=== PATIENT | male | born 1995 | race Caucasian/White ===

== ENCOUNTER 2021-11-20 19:18 | Emergency (ER) | payer OTHER, SELFPAY ==
[2021-11-20 19:49] VITALS: BP 110/52; PULSE 84; RESP 18; TEMP 36.7; O2SAT 100; BMI 18.6
== END 2021-11-20 20:55 | disposition left against medical advice (07) ==
PROVIDERS: Emergency Provider Emergency Medicine
DX: R50.9 Fever, unspecified (principal); G43.909 Migraine, unspecified, not intractable, without status migrainosus
CPT/HCPCS: 99281; 99282

== ENCOUNTER 2024-08-06 02:16 | Emergency (ER) | payer OTHER, SELFPAY ==
--- NOTE | ~2024-08-06 | XR_ITS ---
EXAMINATION: XR KNEE, LEFT CLINICAL INFORMATION: Pain. COMPARISON: None available. TECHNIQUE: 2 of the knee. FINDINGS: The bone mineralization is normal. The joint spaces are maintained. There is no fracture. There is no significant joint effusion. XR/XR knee LT 2V IMPRESSION: No significant abnormality seen. Electronically signed by: Caesar Conn MD 08/06/2024 05:48 AM EDT
[2024-08-06 02:18] VITALS: BP 137/84; PULSE 89; RESP 18; TEMP 36.9; O2SAT 98; BMI 19.9
[2024-08-06 04:15] VITALS: BP 147/65; PULSE 77; RESP 18; TEMP 36.8; O2SAT 98
--- NOTE | 2024-08-06 04:46 | ED.GENADULT ---
HPI - General Adult General Chief complaint: Extremity Problem Stated complaint: left knee/swollen/painful Time Seen by Provider: 08/06/24 04:45 History of Present Illness ED Provider: Odette HPI narrative: The patient is a 29-year-old male who developed pain in the region of his left kneecap today when he was playing on the ground on his knees with his daughter. He says that he has been on his knees for very long before he developed this very distinct and sharp pain which was associated with swelling of the skin overlying the kneecap. 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 No fever, sweats, chills. He has never had this problem before. Related Data Previous Rx's ?Medication ?Instructions ?Recorded ibuprofen 600 mg tablet 600 mg PO Q6H PRN pain #14 tabs 08/06/24 Allergies Allergy/AdvReac Type Severity Reaction Status Date / Time No Known Allergies Allergy Verified 08/06/24 02:20 Review of Systems Review of Systems: Yes all other systems are reviewed and are negative [facility] Past Medical History Medical History (Updated 08/06/24 @ 04:57 by Arslan Pino MD) Heart murmur Surgical History (Updated 11/20/21 @ 19:52 by Tameka El) No pertinent past surgical history Social History Social History Advance Directives: No Advance Directives Information Provided: No Physical Exam ED Vital Signs: Vital Signs - 24 hr 08/06/24 02:18 08/06/24 04:15 08/06/24 05:26 Temperature 98.4 F 98.2 F 97.9 F Pulse Rate 89 77 68 Respiratory Rate 18 18 16 Blood Pressure 137/84 147/65 H 128/66 Pulse Oximetry 98 98 98 Oxygen Delivery Method Room Air Room Air Room Air BMI result Body Mass Index 19.9 Const Other: The patient is a slim 29-year-old male who looks as if he is ordinarily healthy. HENMT Other: Head and face are unremarkable. Mucous membranes moist. Eyes General: appearance normal, both eyes and all related structures Resp Effort & Inspection: normal respiratory effort Skin Other: There is some mildly pale erythema and swelling to the skin over the left patella. The skin is intact. Neuro Other: The patient is awake and alert and appropriate. The left foot is neurovascularly intact. Extrem Other: The patient has swelling and tenderness to the skin overlying the left patella. He does not seem to have swelling to the joint itself. Medications Administered Discontinued Medications Generic Name Dose Route Start Last Admin Trade Name Genna PRN Reason Stop Dose Admin Acetaminophen 975 mg 08/06/24 04:55 08/06/24 05:20 Acetaminophen 325 Mg Tablet PO 08/06/24 04:56 975 mg ONCE ONE Administration Ketorolac Tromethamine 30 mg 08/06/24 04:55 08/06/24 05:23 Ketorolac Tromethamine 30 Mg/Ml Vial IM 08/06/24 04:56 30 mg ONCE ONE Administration Medical Decision Making Medical Decision Making MDM Narrative: The patient is a 29-year-old who presents with what seems to be prepatellar bursitis of the left knee. 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 His symptoms became apparent when he was on his knees at home tonight. The patient will be given a knee immobilizer. He should rest and take it easy and avoid any pressure on his knees for awhile. He should follow up with his PCP. He was given a work note. Discharge Plan Discharge Clinical Impression: Prepatellar bursitis of left knee Patient Disposition: Home, Self-Care Instructions: Knee Bursitis (ED) Additional Instructions: I believe that you have an inflammation of the bursa in front of your left kneecap that we called prepatellar bursitis. I suspect that this is the result of spending a lot of time on your knees. The treatment is primarily rest and staying off your knees. You have been given a knee immobilizer to help keep your knee still and keep the knee from bending. As much as you are able to you should rest for the next several days and keep the leg elevated. Apply ice packs to the knee cap area. Use ibuprofen and acetaminophen as needed for pain. Follow up next week with your regular doctor's office. Return to the emergency room if you are significantly worse, especially if you develop a fever or other signs of infection. Prescriptions: New ibuprofen 600 mg tablet 600 mg PO Q6H PRN (Reason: pain) Qty: 14 0RF Referrals: Mikayla Montano PA [Primary Care Provider] - (Left prepatellar bursitis) Stand Alone Forms: Work/School Release Interventions: ED Discharge Assessment Last Done: 08/06/24 05:26 Discharge Date/Time: 08/06/24 05:33 Print Language: Uzbek
[2024-08-06] MEDS: Acetaminophen 325 MG TABLET 975 MG PO (05:20)
[2024-08-06] MEDS: Ketorolac Tromethamine 30 MG/ML VIAL IM (05:23)
[2024-08-06 05:26] VITALS: BP 128/66; PULSE 68; RESP 16; TEMP 36.6; O2SAT 98
== END 2024-08-06 05:33 | disposition home or self-care (01) ==
PROVIDERS: Emergency Provider Emergency Medicine; PCP Physician Assistant
DX: M70.52 Other bursitis of knee, left knee (principal); Y93.9 Activity, unspecified; M25.562 Pain in left knee
CPT/HCPCS: 73560; 96372; 99283; 99284; J1885

== ENCOUNTER 2024-09-08 13:23 | Outpatient (AMB) | payer OTHER, SELFPAY ==
[2024-09-08 13:32] VITALS: BP 135/73; PULSE 100; O2SAT 98; BMI 19.9
--- NOTE | 2024-09-08 13:32 | MHC.OFFVIS ---
Vital Signs 09/08/24 13:32 Height 5 ft 9 in Weight 135 lb BMI 19.9 BP 135/73 Blood Pressure Location Rt brachial Position Sitting Pulse 100 Pulse Source Pulse Oximeter Pulse Oximetry (%) 98 Oxygen Delivery Method Room Air Intake Visit Reasons: Low back pain Allergies No Known Allergies Allergy (Verified 09/08/24 13:33) Medication List - Last Reconciled 09/08/24 by Mikayla Martinez bupropion HCl XL 300 mg PO QAM cetirizine (All Day Allergy (cetirizine)) 10 mg PO DAILY PRN escitalopram oxalate 20 mg PO DAILY famotidine 20 mg PO BID gabapentin 100 mg PO TID hydroxyzine HCl 25 mg PO BID PRN ibuprofen 600 mg PO Q6H PRN sildenafil 50 mg PO DAILY PRN tizanidine 2 mg PO Q8H PRN trazodone 50 mg PO BEDTIME PRN triamcinolone acetonide 0.1% 1 appl topical BID HPI Comments Details: John is a very pleasant 29-year-old male who presents to the office today for evaluation management of his chronic diffuse pain He complains of pain to his neck, back, arms, knees, feet. Pain most significant in the neck and he chose to focus on this area Patient reports he has been suffering with this pain for 2 years, denies inciting injury, fall, trauma. He is not sure what caused this pain to start. Endorses 7/10 pain to bilateral trapezius, worse with movement and tender to palpation. Denies midline cervical neck pain States he has an MRI was neck scheduled for September 21, this was ordered by his neurologist. Denies radiation of the pain from the neck down to the fingers on either side but does state that at times his hands feel numb and tingling. He is not able to state how often this happens or how long it lasts for nor is he able to detail that precedes the changes. He reports no improvement in his pain with Tylenol or nonsteroidal anti-inflammatory medications. Minimal improvement with gabapentin 300 mg p.o. 3 times daily Has been taking tizanidine 4 mg 3 times daily for several months without improvement before that he was on tizanidine 2 mg 3 times daily for over 1 year Denies any recent x-rays Completed physical therapy a couple months ago without improvement, he continues with home exercise program has instructed on discharge from physical therapy. In terms of muscle damage condition is described as pulling, throbbing, pounding, jumping, shooting, sharp, tingling, stinging, tiring, dull, sore, hurting, aching, heavy got tight, squeezing, spreading Pain is negatively impacting patient's enjoyment of life, general activity, sleep, mood, ability to perform activities of daily living Denies current use of anticoagulants Denies implantable devices, pacemaker defibrillator Denies current use of alcohol, nicotine or tobacco. Endorses daily marijuana use. [facility] Medical History (Updated 09/08/24 @ 16:11 by Chelsea Reeves, OPERATER, TELESALES REPRESENTATIVE) Heart murmur Surgical History (Updated 11/20/21 @ 19:52 by Tameka El) No pertinent past surgical history Review of Systems Const All systems reviewed & are unremarkable except as noted in HPI and below Physical Exam Vital Signs: Last Vital Signs Pulse 100 09/08/24 13:32 BP 135/73 09/08/24 13:32 Pulse Ox 98 09/08/24 13:32 Oxygen Delivery Method Room Air 09/08/24 13:32 BMI result Body Mass Index 19.9 General: awake, alert, oriented. Answers questions appropriately. Fully engaged in examination. Skin: warm, dry, intact HEENT: Normocephalic. Hearing intact. Cardiac: External chest normal in appearance. Respiratory: No cough, audible wheezing or stridor. Abdomen: without gross distension. MS: No obvious swelling or deformities. Full cervical range of motion. Tenderness to palpation over bilateral middle trapezius Spurling negative Neurological: Oriented to person, place, time and situation. Thought process intact. No gait abnormalities appreciated. Psychiatric: Appropriate mood and affect. Good judgment and insight. Assessment & Plan Assessment & Plan (1) Dorsalgia: Code(s): M54.9 - Dorsalgia, unspecified Category: Medical (2) Cervicalgia: Code(s): M54.2 - Cervicalgia Category: Medical (3) Paresthesia of both hands: Code(s): R20.2 - Paresthesia of skin Category: Medical (4) Chronic pain syndrome: Code(s): G89.4 - Chronic pain syndrome Category: Medical Plan John is a very pleasant 29-year-old male who presented to the office today for evaluation management of his chronic pain X-ray lumbar spine and cervical spine ordered for evaluation EMG ordered to evaluate for patient's reported paresthesia of his bilateral hands Referral placed for Rheumatology to evaluate given patient's reported polyarthralgia Discontinue tizanidine, new prescription for baclofen 5 mg p.o. 3 times daily as needed. Patient advised on cautions for use All questions and concerns were answered, patient agrees the plan. Follow up after MRI/EMG, sooner if needed Orders: Orders XR lumbar spine 4V min Today M54.9 - Dorsalgia, unspecified NE electromyogram (EMG) Today R20.2 - Paresthesia of skin XR cervical spine w flex/ext Today M54.2 - Cervicalgia Referrals Rheumatology Referral M25.50 - Pain in unspecified joint Medications: New baclofen Discontinue use of tizanidine. No driving while taking this medication, do not take with any other [employer]ING [employer] depressants. 5 mg PO TID 90 tabs 1RF Coding Level of Care Code New Pt Level 4 (44234) Complex EM visit Add On G2211 Diagnoses Dorsalgia M54.9 Cervicalgia M54.2 Paresthesia of both hands R20.2 Chronic pain syndrome G89.4
== END 2024-09-08 13:55 | disposition home or self-care (01) ==
LOC: HO.PMC 13:23
PROVIDERS: PCP Physician Assistant; Visit Provider Registered Nurse Emergency
DX: M54.9 Dorsalgia, unspecified (principal); M54.2 Cervicalgia; R20.2 Paresthesia of skin; G89.4 Chronic pain syndrome
CPT/HCPCS: 99204

== ENCOUNTER 2024-09-08 13:23 | Outpatient (REF) | payer OTHER, SELFPAY | END 2024-09-08 13:24 | disposition home or self-care (01) | LOC: HO.XRAY 13:23 | PROVIDERS: PCP Physician Assistant; Visit Provider Registered Nurse Emergency | DX: M54.2 Cervicalgia (principal); M54.9 Dorsalgia, unspecified | CPT/HCPCS: 72052; 72110 ==

== ENCOUNTER 2024-09-29 08:49 | Outpatient (REF) | payer OTHER, SELFPAY ==
--- NOTE | 2024-09-29 08:52 | EMG_ITS ---
Chief complaint: Hand numbness, right worse than left; neck pain Reason for referral: Evaluate for Carpal Tunnel Syndrome versus radiculopathy Referred by: Chelsea Reeves NP Procedure done: Bilateral upper extremities NCS/EMG Precautions and/or limitations: None The limb temperature was monitored continuously and remained between 32-36 degrees C during the performance of the NCS. Nerve Conduction Studies Anti Sensory Summary Table ?Stim Site NR Onset (ms) Norm Onset (ms) Peak (ms) Norm Peak (ms) O-P Amp (?V) Norm O-P Amp Site1 Site2 Delta-0 (ms) Dist (cm) Song (m/s) Norm Song (m/s) Left Median Anti Sensory (2nd Digit) Wrist ? 2.8 3.6 <3.6 30.0 >10 Wrist 2nd Digit 2.8 14.0 50 Right Median Anti Sensory (2nd Digit) Wrist ? 1.8 3.6 <3.6 9.1 >10 Wrist 2nd Digit 1.8 14.0 78 Right Radial Anti Sensory (Thumb) Forearm ? 1.7 2.4 <3.1 16.5 Forearm Thumb 1.7 0.0 Left Ulnar Anti Sensory (5th Digit) Wrist ? 2.7 3.5 <3.7 21.9 >15.0 Wrist 5th Digit 2.7 14.0 52 Right Ulnar Anti Sensory (5th Digit) Wrist ? 2.8 3.6 <3.7 26.1 >15.0 Wrist 5th Digit 2.8 14.0 50 Motor Summary Table ?Stim Site NR Onset (ms) Norm Onset (ms) O-P Amp (mV) Norm O-P Amp iAmp (mV) Amp (1st) (%) Site1 Site2 Delta-0 (ms) Dist (cm) Song (m/s) Norm Song (m/s) Left Median Motor (Abd Poll Brev) Wrist ? 3.8 <3.9 13.6 >4.5 16.9 100.0 Elbow Wrist 4.2 23.5 56 >45 Elbow ? 8.0 12.4 15.6 91.2 Right Median Motor (Abd Poll Brev) Wrist ? 3.7 <3.9 10.4 >4.5 12.4 100.0 Elbow Wrist 4.3 22.5 52 >45 Elbow ? 8.0 9.3 11.0 89.4 Left Ulnar Motor (Abd Dig Minimi) Wrist ? 3.0 <3.0 10.4 >5 12.5 100.0 B Elbow Wrist 3.7 20.5 55 >45 B Elbow ? 6.7 10.4 12.6 100.0 A Elbow B Elbow 1.7 10.0 59 >45 A Elbow ? 8.4 10.6 13.0 101.9 Right Ulnar Motor (Abd Dig Minimi) Wrist ? 3.0 <3.0 12.5 >5 14.2 100.0 B Elbow Wrist 4.2 21.5 51 >45 B Elbow ? 7.2 11.8 13.4 94.4 A Elbow B Elbow 1.6 10.0 62 >45 A Elbow ? 8.8 11.9 13.5 95.2 EMG ?Side Muscle Nerve Root Ins Act Fibs Psw Amp Dur Poly Recrt Int Pat Comment Right 1stDorInt Ulnar C8-T1 Nml Nml Nml Nml Nml 0 Nml Complete Right FlexCarRad Median C6-7 Nml Nml Nml Nml Nml 0 Nml Complete Right Biceps Musculocut C5-6 Nml Nml Nml Nml Nml 0 Nml Complete Right Triceps Radial C6-7-8 Nml Nml Nml Nml Nml 0 Nml Complete Right Deltoid Axillary C5-6 Nml Nml Nml Nml Nml 0 Nml Complete Left 1stDorInt Ulnar C8-T1 Nml Nml Nml Nml Nml 0 Nml Complete Left FlexCarRad Median C6-7 Nml Nml Nml Nml Nml 0 Nml Complete Left Biceps Musculocut C5-6 Nml Nml Nml Nml Nml 0 Nml Complete Left Triceps Radial C6-7-8 Nml Nml Nml Nml Nml 0 Nml Complete Left Deltoid Axillary C5-6 Nml Nml Nml Nml Nml 0 Nml Complete FINDINGS: Right median motor nerve showed borderline peak latency and small amplitude. All other nerves tested were within normal. Concentric needle EMG was performed in selected muscles of the bilateral upper extremities. Study did not reveal signs of electric abnormalities as shown in the table above. IMPRESSION: 1. This is an abnormal study. 2. There is electrodiagnostic evidence for right mild median neuropathy at the wrist, consistent with carpal tunnel syndrome. 3. There is no electrodiagnostic evidence for ulnar neuropathy, brachial plexopathy, or cervical radiculopathy. 4. There is no electrodiagnostic evidence for median neuropathy on the left. Thank you for your kind referral. Mandy Orourke MD, MEETA Board Certified, [place] Board [employer] and Rehabilitation (ABPMR) Board Certified, [place] Board of Electrodiagnostic Medicine (ABEM) CODIN [phone] MTDD
== END 2024-09-29 08:50 | disposition home or self-care (01) ==
LOC: HO.NEURO 08:49
PROVIDERS: PCP Physician Assistant; Visit Provider Registered Nurse Emergency
DX: R20.2 Paresthesia of skin (principal)
CPT/HCPCS: 95886; 95911

== ENCOUNTER → 2024-09-29 08:52 | Outpatient (BNV) | payer OTHER, SELFPAY | PROVIDERS: PCP Physician Assistant; Visit Provider Physical Medicine & Rehabilitation | DX: G56.01 Carpal tunnel syndrome, right upper limb (principal); R20.0 Anesthesia of skin; R20.2 Paresthesia of skin | CPT/HCPCS: 95886; 95911 ==

== ENCOUNTER 2024-09-30 10:25 | Outpatient (AMB) | payer OTHER, SELFPAY ==
[2024-09-30 10:30] VITALS: BP 126/66; PULSE 75; O2SAT 99; BMI 19.9
--- NOTE | 2024-09-30 10:30 | A.OFFVIS_ITS ---
Vital Signs 09/30/24 10:30 Height 5 ft 9 in Weight 135 lb BMI 19.9 BP 126/66 Blood Pressure Location Rt brachial Position Sitting Pulse 75 Pulse Source Pulse Oximeter Pulse Oximetry (%) 99 Oxygen Delivery Method Room Air Intake Visit Reasons: MRI FU Pt has the report/EMG results Allergies No Known Allergies Allergy (Verified 09/30/24 10:30) Medication List - Last Reconciled 09/30/24 by Mikayla Martinez baclofen 5 mg PO TID bupropion HCl XL 300 mg PO QAM cetirizine (All Day Allergy (cetirizine)) 10 mg PO DAILY PRN escitalopram oxalate 20 mg PO DAILY famotidine 20 mg PO BID gabapentin 100 mg PO TID hydroxyzine HCl 25 mg PO BID PRN ibuprofen 600 mg PO Q6H PRN sildenafil 50 mg PO DAILY PRN trazodone 50 mg PO BEDTIME PRN triamcinolone acetonide 0.1% 1 appl topical BID HPI Comments Details: Patient presents back to the office today for follow-up, readily recent EMG. EMG reviewed, results as per below. Recent MRI reviewed on patient portal via his cell phone. Results as per below Patient states he notices some improvement with baclofen. He would like to continue taking this medication. Since last visit his gabapentin was increased from 300 t.i.d. to 400 t.i.d.. He has not noticed any improvement in his symptoms since this change. Pending rheumatology appointment 12/30/2024. Patient reports he has a thoracic spine MRI pending per Neurology. He denies any recent attempts at physical therapy but he would be willing to try. Intake note: John is a very pleasant 29-year-old male who presents to the office today for evaluation management of his chronic diffuse pain He complains of pain to his neck, back, arms, knees, feet. Pain most significant in the neck and he chose to focus on this area Patient reports he has been suffering with this pain for 2 years, denies inciting injury, fall, trauma. He is not sure what caused this pain to start. Endorses 7/10 pain to bilateral trapezius, worse with movement and tender to palpation. Denies midline cervical neck pain States he has an MRI was neck scheduled for September 21, this was ordered by his neurologist. Denies radiation of the pain from the neck down to the fingers on either side but does state that at times his hands feel numb and tingling. He is not able to state how often this happens or how long it lasts for nor is he able to detail that precedes the changes. He reports no improvement in his pain with Tylenol or nonsteroidal anti- inflammatory medications. Minimal improvement with gabapentin 300 mg p.o. 3 times daily Has been taking tizanidine 4 mg 3 times daily for several months without improvement before that he was on tizanidine 2 mg 3 times daily for over 1 year Denies any recent x-rays Completed physical therapy a couple months ago without improvement, he continues with home exercise program has instructed on discharge from physical therapy. In terms of muscle damage condition is described as pulling, throbbing, pounding, jumping, shooting, sharp, tingling, stinging, tiring, dull, sore, hurting, aching, heavy got tight, squeezing, spreading Pain is negatively impacting patient's enjoyment of life, general activity, sleep, mood, ability to perform activities of daily living Denies current use of anticoagulants Denies implantable devices, pacemaker defibrillator Denies current use of alcohol, nicotine or tobacco. Endorses daily marijuana use. [facility] Medical History (Updated 09/30/24 @ 12:49 by Chelsea Reeves, ALISON, OUTSIDE PLANT CABLE ENGINEER) Heart murmur Surgical History (Updated 11/20/21 @ 19:52 by Tameka El) No pertinent past surgical history Review of Systems Const All systems reviewed & are unremarkable except as noted in HPI and below Physical Exam General: awake, alert, oriented. Answers questions appropriately. Fully engaged in examination. Skin: warm, dry, intact HEENT: Normocephalic. Hearing intact. Cardiac: External chest normal in appearance. Respiratory: No cough, audible wheezing or stridor. Abdomen: without gross distension. MS: No obvious swelling or deformities. Neurological: Oriented to person, place, time and situation. Thought process intact. No gait abnormalities appreciated. Psychiatric: Appropriate mood and affect. Good judgment and insight. Results Reviewed Results Reviewed: 09/2024 EMG IMPRESSION: 1. This is an abnormal study. 2. There is electrodiagnostic evidence for right mild median neuropathy at the wrist, consistent with carpal tunnel syndrome. 3. There is no electrodiagnostic evidence for ulnar neuropathy, brachial plexopathy, or cervical radiculopathy. 4. There is no electrodiagnostic evidence for median neuropathy on the left. 09/2024 MRI C/S. Writing visualized on patient portal via his cell phone during visit. C3-4 no significant stenosis. Mild left facet joint spurring and uncovertebral spurring resulting in mild left foraminal stenosis C6-7 mild disc bulge superimposed central and right paracentral disc extrusion. Minimal canal stenosis. [id number] bilateral foraminal stenosis. Assessment & Plan Assessment & Plan (1) Carpal tunnel syndrome: Code(s): G56.00 - Carpal tunnel syndrome, unspecified upper limb Category: Medical (2) Cervicalgia: Code(s): M54.2 - Cervicalgia Category: Medical Plan Patient presented back to the office today for follow-up, over recent MRI/EMG. Referral to hand surgery for carpal tunnel syndrome per EMG. Order placed for PT eval and treat Prescription for Celebrex 50 mg p.o. twice daily. Patient advised on cautions for use. Continue with baclofen and gabapentin as prescribed All questions and concerns were answered, patient agrees to the plan. Follow up after PT, sooner if needed Orders: Orders PT Evaluation and Treatment Today M54.2 - Cervicalgia Referrals Hand Surgery Referral G56.00 - Carpal tunnel syndrome, unspecified upper limb Medications: New celecoxib Do not take with any other nonsteroidal anti-inflammatory medications. Take with food. 50 mg PO BID 60 caps 3RF Discontinued ibuprofen Discontinued Reason: Duplicate 600 mg PO Q6H PRN 14 tabs 0RF pain Coding Level of Care Code Est Pt Level 3 (89961) Complex EM visit Add On G2211 Diagnoses Carpal tunnel syndrome G56.00 Cervicalgia M54.2
== END 2024-09-30 10:45 | disposition home or self-care (01) ==
PROVIDERS: PCP Physician Assistant; Visit Provider Registered Nurse Emergency
DX: G56.00 Carpal tunnel syndrome, unspecified upper limb (principal); M54.2 Cervicalgia
CPT/HCPCS: 99213

== ENCOUNTER 2024-10-21 15:03 | Outpatient (AMB) | payer OTHER, SELFPAY ==
--- NOTE | 2024-10-21 15:11 | MHC.OFFVIS ---
Vital Signs 10/21/24 15:15 Height 5 ft 9 in Weight 143 lb 2 oz BMI 21.1 BP 136/82 Blood Pressure Location Rt brachial Position Sitting Pulse 93 Pulse Source Pulse Oximeter Pulse Oximetry (%) 98 Oxygen Delivery Method Room Air Intake Visit Reasons: Discuss MRI Resuts Intake Note: Pain today 05/19 Director Physical Therapy Required: No Accompanied by: Self / Same As Patient Allergies No Known Allergies Allergy (Verified 09/30/24 10:30) HPI Comments Details: Patient presents back to the office today for follow-up, review of recent MRI Patient had recent thoracic spine MRI ordered by Neurology. He is here to review results which are available on his cell phone. Continues with neck pain. Taking baclofen with minimal improvement continues with Celebrex with minimal improvement. Is prescribed gabapentin 400 mg 3 times daily by his neurologist. He would like us to take over prescribing this consider dose increase. He has not been call to schedule physical therapy at Prior: Patient presents back to the office today for follow-up, readily recent EMG. EMG reviewed, results as per below. Recent MRI reviewed on patient portal via his cell phone. Results as per below Patient states he notices some improvement with baclofen. He would like to continue taking this medication. Since last visit his gabapentin was increased from 300 t.i.d. to 400 t.i.d.. He has not noticed any improvement in his symptoms since this change. Pending rheumatology appointment 12/30/2024. Patient reports he has a thoracic spine MRI pending per Neurology. He denies any recent attempts at physical therapy but he would be willing to try. Intake note: John is a very pleasant 29-year-old male who presents to the office today for evaluation management of his chronic diffuse pain He complains of pain to his neck, back, arms, knees, feet. Pain most significant in the neck and he chose to focus on this area Patient reports he has been suffering with this pain for 2 years, denies inciting injury, fall, trauma. He is not sure what caused this pain to start. Endorses 7/10 pain to bilateral trapezius, worse with movement and tender to palpation. Denies midline cervical neck pain States he has an MRI was neck scheduled for September 21, this was ordered by his neurologist. Denies radiation of the pain from the neck down to the fingers on either side but does state that at times his hands feel numb and tingling. He is not able to state how often this happens or how long it lasts for nor is he able to detail that precedes the changes. He reports no improvement in his pain with Tylenol or nonsteroidal anti-inflammatory medications. Minimal improvement with gabapentin 300 mg p.o. 3 times daily Has been taking tizanidine 4 mg 3 times daily for several months without improvement before that he was on tizanidine 2 mg 3 times daily for over 1 year Denies any recent x-rays Completed physical therapy a couple months ago without improvement, he continues with home exercise program has instructed on discharge from physical therapy. In terms of muscle damage condition is described as pulling, throbbing, pounding, jumping, shooting, sharp, tingling, stinging, tiring, dull, sore, hurting, aching, heavy got tight, squeezing, spreading Pain is negatively impacting patient's enjoyment of life, general activity, sleep, mood, ability to perform activities of daily living Denies current use of anticoagulants Denies implantable devices, pacemaker defibrillator Denies current use of alcohol, nicotine or tobacco. Endorses daily marijuana use. [facility] Medical History (Updated 09/30/24 @ 12:49 by Chelsea Reeves, CREMATORY ATTENDANT, WELCOME WAGON HOST/HOSTESS) Heart murmur Surgical History (Updated 11/20/21 @ 19:52 by Tameka El) No pertinent past surgical history Review of Systems Const All systems reviewed & are unremarkable except as noted in HPI and below Physical Exam Vital Signs: Last Vital Signs Pulse 93 10/21/24 15:15 BP 136/82 10/21/24 15:15 Pulse Ox 98 10/21/24 15:15 Oxygen Delivery Method Room Air 10/21/24 15:15 BMI result Body Mass Index 21.1 General: awake, alert, oriented. Answers questions appropriately. Fully engaged in examination. Skin: warm, dry, intact HEENT: Normocephalic. Hearing intact. Cardiac: External chest normal in appearance. Respiratory: No cough, audible wheezing or stridor. Abdomen: without gross distension. MS: No obvious swelling or deformities. Neurological: Oriented to person, place, time and situation. Thought process intact. No gait abnormalities appreciated. Psychiatric: Appropriate mood and affect. Good judgment and insight. Results Reviewed Results Reviewed: 10/18/24 MRI thoracic spine Impression: Small disc herniations at several levels, this is of doubtful clinical significance. No high-grade canal stenosis or neural foraminal narrowing. 09/2024 EMG IMPRESSION: 1. This is an abnormal study. 2. There is electrodiagnostic evidence for right mild median neuropathy at the wrist, consistent with carpal tunnel syndrome. 3. There is no electrodiagnostic evidence for ulnar neuropathy, brachial plexopathy, or cervical radiculopathy. 4. There is no electrodiagnostic evidence for median neuropathy on the left. 09/2024 MRI C/S. Writing visualized on patient portal via his cell phone during visit. C3-4 no significant stenosis. Mild left facet joint spurring and uncovertebral spurring resulting in mild left foraminal stenosis C6-7 mild disc bulge superimposed central and right paracentral disc extrusion. Minimal canal stenosis. [id number] bilateral foraminal stenosis. Assessment & Plan Assessment & Plan (1) Carpal tunnel syndrome: Code(s): G56.00 - Carpal tunnel syndrome, unspecified upper limb Category: Medical (2) Cervicalgia: Code(s): M54.2 - Cervicalgia Category: Medical Plan Patient presented back to the office today for follow-up, over recent MRI MRI reviewed, results as per above Continue with plan for PT eval and treat. Patient was given contact information for core PT and advised to call them if he does not hear within the next week. Prescription for Celebrex 50 mg p.o. twice daily. Continue with baclofen as prescribed Will increase gabapentin to 600 mg 3 times daily. All questions and concerns were answered, patient agrees to the plan. Follow up after PT, sooner if needed Medications: New gabapentin 600 mg PO TID 90 tabs 2RF Coding Level of Care Code Est Pt Level 3 (41034) Complex EM visit Add On G2211 Diagnoses Carpal tunnel syndrome G56.00 Cervicalgia M54.2
[2024-10-21 15:15] VITALS: BP 136/82; PULSE 93; O2SAT 98; BMI 21.1
== END 2024-10-21 15:31 | disposition home or self-care (01) ==
PROVIDERS: PCP Physician Assistant; Visit Provider Registered Nurse Emergency
DX: G56.00 Carpal tunnel syndrome, unspecified upper limb (principal); M54.2 Cervicalgia
CPT/HCPCS: 99213

== ENCOUNTER → 2024-10-21 15:03 | Outpatient (BNVA) | payer OTHER, SELFPAY | PROVIDERS: PCP Physician Assistant; Visit Provider Registered Nurse Emergency ==

== ENCOUNTER 2024-11-26 14:16 | Outpatient (AMB) | payer OTHER, SELFPAY ==
--- NOTE | 2024-11-26 14:30 | A.OFFVIS_ITS ---
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 Patient reports numbness and tingling that occurs daily but expresses it is only if he is holding objects in his hand too long. Reports occasional pain. He has difficulty gripping, grasping, squeezing and lifting. Denies finger locking. Has tried braces but offer no relief. Denies any prior injuries or surgeries. He is open to discussing surgical treatment if needed. Hx of EMG done on 09/29/24. IMPRESSION: 1. This is an abnormal study. 2. There is electrodiagnostic evidence for right mild median neuropathy at the wrist, consistent with carpal tunnel syndrome. 3. There is no electrodiagnostic evidence for ulnar neuropathy, brachial plexopathy, or cervical radiculopathy. 4. There is no electrodiagnostic evidence for median neuropathy on the left. 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 Patient reports numbness and tingling that occurs daily but expresses it is only if he is holding objects in his hand too long. Reports occasional pain. He has difficulty gripping, grasping, squeezing and lifting. Denies finger locking. Has tried braces but offer no relief. Denies any prior injuries or surgeries. He is open to discussing surgical treatment if needed. Hx of EMG done on 09/29/24. IMPRESSION: 1. This is an abnormal study. 2. There is electrodiagnostic evidence for right mild median neuropathy at the wrist, consistent with carpal tunnel syndrome. 3. There is no electrodiagnostic evidence for ulnar neuropathy, brachial plexopathy, or cervical radiculopathy. 4. There is no electrodiagnostic evidence for median neuropathy on the left. [facility] Medical History (Updated 09/30/24 @ 12:49 by Chelsea Reeves, SENIOR MOBILE APPLICATION DEVELOPER, SUPERVISOR BRAIDING) Heart murmur Surgical History (Updated 11/20/21 @ 19:52 by Tameka El) No pertinent past surgical history Social History (Updated 11/26/24 @ 14:35 by SILVIA Choudhury) Alcohol intake: former Substance Use Type: Marijuana Current occupational status: employed Review of Systems Const All systems reviewed & are unremarkable except as noted in HPI and below Physical Exam Vital Signs: BMI result Body Mass Index 19.9 Extrem Other: Neuro: Normal sensation of the tips of all digits of both hands in the office today No thenar or intrinsic wasting. Good APB muscle firing and good finger cross. Vascular: Capillary refill brisk. ROM: Patient can make a fist and extend all their digits. Skin: No lacerations or abrasions noted. General: No ecchymosis. No erythema or evidence of infection. Assessment & Plan Assessment & Plan (1) Carpal tunnel syndrome: Code(s): G56.00 - Carpal tunnel syndrome, unspecified upper limb Category: Medical Plan 1. Carpal tunnel syndrome, right Intermittent, daily, worse at night I educated the patient about the condition. I discussed both operative and nonoperative treatment options. The patient would like to proceed with surgery. The risks and benefits of operative treatment were discussed with the patient and the patient wishes to proceed with surgery. These risks include, but are not limited to, risk of damage to blood vessels, nerves, tendons, infection, recurrence, incomplete relief of preoperative symptoms, persistent pain, possible need for further surgery, and the risks associated with regional blocks and/or anesthesia. Plan is to take the patient to the operating room at some point in the next few weeks for the following procedures: 1. Right carpal tunnel release under local All of the preoperative paperwork including the consent was discussed today. All of the patient's questions were answered in the clinic today. The patient understands that they will be in contact with our surgical territory manager to discuss scheduling their procedure. Patient denies diabetes, blood thinners, asthma, heart issues, lung issues, kidney issues, or current smoking. 2. Carpal tunnel syndrome left Intermittent, daily, worse at night Patient would like to proceed with operative intervention on the right 1st Patient was educated that if he is recovering well we can get him signed up for left-sided surgery at his postop Patient was amenable to this plan Coding Level of Care Code New Pt Level 4 (95309) Diagnoses Carpal tunnel syndrome G56.00
[2024-11-26 14:34] VITALS: BMI 19.9
== END 2024-11-26 14:48 | disposition home or self-care (01) ==
PROVIDERS: PCP Physician Assistant
DX: G56.03 Carpal tunnel syndrome, bilateral upper limbs (principal)
CPT/HCPCS: 99204

== ENCOUNTER → 2024-11-26 14:16 | Outpatient (BNVA) | payer OTHER, SELFPAY | PROVIDERS: PCP Physician Assistant ==

== ENCOUNTER 2024-12-15 09:47 | Outpatient (REF) | payer OTHER, SELFPAY ==
--- NOTE | ~2024-12-15 | XR_ITS ---
CLINICAL HISTORY: M45.9 - Ankylosing spondylitis of unspecified sites in spine 4 view right hand Comparison: None Findings: Bones intact. No dislocations. No significant loss of joint space or osteophytes. No erosions. No radiopaque foreign body. IMPRESSION: 1. No acute findings This document has been electronically signed by: Yudy Jones MD on 12/16/2024 06:31:24
--- NOTE | ~2024-12-15 | XR_ITS ---
CLINICAL HISTORY: M45.9 - Ankylosing spondylitis of unspecified sites in spine 4 view right shoulder Comparison: None Findings: Bones intact. No dislocations. No significant arthritic change. No erosions. No radiopaque foreign body. IMPRESSION: 1. No acute findings This document has been electronically signed by: Yudy Jones MD on 12/16/2024 06:30:41
--- NOTE | ~2024-12-15 | XR_ITS ---
CLINICAL HISTORY: M45.9 - Ankylosing spondylitis of unspecified sites in spine 3 view right knee Comparison: None Findings: No fractures or dislocations. No significant loss of joint space, osteophytes, or erosions. No joint effusion. No radiopaque foreign body. IMPRESSION: 1. No acute findings. This document has been electronically signed by: Yudy Jones MD on 12/16/2024 06:29:01
--- NOTE | ~2024-12-15 | XR_ITS ---
CLINICAL HISTORY: M45.9 - Ankylosing spondylitis of unspecified sites in spine 4 view left shoulder Comparison: None Findings: Bones intact. No dislocations. No significant loss of joint space or osteophytes. No erosions. No radiopaque foreign body. IMPRESSION: 1. No acute findings. No significant degenerative change. This document has been electronically signed by: Yudy Jones MD on 12/16/2024 06:03:01
--- NOTE | ~2024-12-15 | XR_ITS ---
CLINICAL HISTORY: M45.9 - Ankylosing spondylitis of unspecified sites in spine 3 view left knee Comparison: None Findings: No fractures or dislocations. No significant loss of joint space, osteophytes, or erosions. No joint effusion. No radiopaque foreign body. IMPRESSION: 1. No acute findings. No significant degenerative change. This document has been electronically signed by: Yudy Jones MD on 12/16/2024 06:04:03
--- NOTE | ~2024-12-15 | XR_ITS ---
CLINICAL HISTORY: M45.9 - Ankylosing spondylitis of unspecified sites in spine 4 views sacroiliac joints Comparison: None Findings No acute fractures. No evidence of ankylosis. No significant degenerative change. No erosions. IMPRESSION: No acute findings. No evidence of ankylosis. This document has been electronically signed by: Yudy Jones MD on 12/16/2024 06:04:52
--- NOTE | ~2024-12-15 | XR_ITS ---
CLINICAL HISTORY: M45.9 - Ankylosing spondylitis of unspecified sites in spine 3 view left hand 4 view left wrist Comparison: None Findings: Bones intact. No dislocations. No significant loss of joint space or osteophytes. No erosions. No radiopaque foreign body. IMPRESSION: 1. No acute findings This document has been electronically signed by: Yudy Jones MD on 12/16/2024 06:34:50
[2024-12-15 11:22] LABS: MANUAL DIFF FLAG NO
[2024-12-15 11:51] LABS: Basophils Absolute Auto 0.1 X10*3/uL (0.0-0.2); Basophils Percent Auto 1.1 % (0-2); Eosinophils Absolute Auto 0.1 X10*3/uL (0.0-0.4); Eosinophils Percent Auto 1.5 % (0-4); Hematocrit 43.9 % (42.0-52.0); Imm Gran Abs Auto 0.02 X10*3/uL (0.00-0.03); Imm Gran Pct Auto 0.3 % (0.0-0.4); Lymphocytes Absolute Auto 2.8 X10*3/uL (1.2-4.9); Lymphocytes Percent Auto 39.4 % (20-40); Mean Corpuscular HGB Conc 34.2 g/dl (31.0-36.0); Mean Corpuscular Volume 87.8 fL (80.0-98.0); Mean Platelet Volume 10.7 fL (9.4-12.4); Monocytes Absolute Auto 0.6 X10*3/uL (0.1-1.2); Monocytes Percent Auto 7.9 % (2-11); Neutrophils Absolute Auto 3.5 x10*3/uL (2.0-8.3); Neutrophils Percent Auto 49.8 % (45-73); Platelet Count 318 X10*3/uL (160-400); Red Cell Distribution Width 12.6 % (11.0-16.0); White Blood Count 7.1 X10*3/uL (4.8-10.8)
[2024-12-15 12:29] LABS: Alanine Aminotransferase 70 U/L (0-40); Albumin Level 4.6 g/dL (3.5-5.0); Alkaline Phosphatase 85 U/L (39-117); Anion Gap 10 (12-20); Aspartate Amino Transferase 46 U/L (5-37); Bilirubin Total 0.5 mg/dL (0.0-1.0); Blood Urea Nitrogen 8 mg/dL (9-16); C Reactive Protein < 0.10 mg/dL (< or = 0.50); Calcium 8.7 mg/dL (8.4-10.2); Carbon Dioxide 28 mmol/L (22-29); Chloride 106 mmol/L (96-108); Estimated Glomerular Filt Rate > 60; Glucose Random 98 mg/dL (60-115); Potassium 4.1 mmol/L (3.3-5.1); Sodium 140 mmol/L (135-145); Total Protein 7.3 g/dL (6.5-8.0)
[2024-12-15 12:30] LABS: Erythrocyte Sedimentation Rate 1 MM/HR (0-15)
[2024-12-15 12:38] LABS: Thyroid Stimulating Hormone 0.91 uIU/mL (0.32-4.0)
[2024-12-15 12:43] LABS: HBsAGNum1 0.37 S/CO (0.00-0.99); Hepatitis A Antibody IgM 0.14 Index (0-0.79); Hepatitis B Core Antibody Nonreactive (Nonreactive); Hepatitis B Surface Antigen Negative (Negative); ~HepC Num1 0.07 S/CO (0.00-0.79); ~Hepatitis A Antibody IgM Nonreactive (Nonreactive); ~Hepatitis B Surface Antibody NONREACTIVE (Nonreactive); ~Hepatitis C Antibody Nonreactive (Nonreactive)
[2024-12-15 13:26] LABS: Rheumatoid Factor < 13.0 IU/mL (<15.0)
[2024-12-16 14:54] LABS: Complement C3 117 mg/dL (82-185)
[2024-12-17 07:44] LABS: Lyme Abs Screen <0.90 index
[2024-12-17 16:18] LABS: Anti DNA DS Antibody <1 IU/mL; Antibody to SS-A Antigen <1.0 NEG AI (<1.0 NEG); Antibody to SS-B Antigen <1.0 NEG AI (<1.0 NEG)
[2024-12-17 17:28] LABS: Cyclic Citrullinated Peptide 17 UNITS
[2024-12-17 17:58] LABS: IgA 199 mg/dL (47-310); IgG 922 mg/dL (600-1640); IgM 36 mg/dL (50-300)
[2024-12-21 13:38] LABS: Anti Nuclear Antibody Screen NEGATIVE (NEGATIVE)
[2024-12-21 22:24] LABS: Centromere Protein A Ab <11 SI (<11); Centromere Protein B Ab <11 SI (<11); Fibrillarin Ab <11 SI (<11); PM SCL 100 Ab <11 SI (<11); PM SCL 75 Ab <11 SI (<11); RNA Polymerase III RP11 Ab <11 SI (<11); RNA Polymerase III RP155 Ab <11 SI (<11); SCL-70 Extractable Nuclear Ab <11 SI (<11); Th-To Ab <11 SI (<11); U1 SNRNP RNP 70KD <11 SI (<11); U1 SNRNP RNP A <11 SI (<11); U1 SNRNP RNP C <11 SI (<11)
== END 2024-12-15 09:48 | disposition home or self-care (01) ==
LOC: HO.XRAY 09:47
PROVIDERS: PCP Physician Assistant; Visit Provider Student in an Organized Health Care Education/Training Program
DX: M25.50 Pain in unspecified joint (principal); M45.9 Ankylosing spondylitis of unspecified sites in spine
CPT/HCPCS: 36415; 72202; 73030; 73110; 73130; 73562; 80053; 82550; 82784; 83516; 83520; 84182; 84443; 85025; 85652; 86038; 86140; 86160; 86200; 86225; 86235; 86431; 86617; 86618; 86704; 86706; 86709; 86803; 87340

== ENCOUNTER 2024-12-15 09:47 | Outpatient (AMB) | payer OTHER, SELFPAY ==
[2024-12-15 09:48] VITALS: BP 148/79; PULSE 87; BMI 20.8
--- NOTE | 2024-12-15 09:48 | A.OFFVIS_ITS ---
Vital Signs 12/15/24 09:48 Height 5 ft 9 in Weight 141 lb 1.533 oz BMI 20.8 BP 148/79 H Blood Pressure Location Rt brachial Position Sitting Pulse 87 Pulse Source Pulse Oximeter Intake Visit Reasons: Joint Pain Intake Note: NEW Patient present here today to establish treatment for Joint Pain: Pain scale 1-10_6 Hand Coper Required: No Accompanied by: Self / Same As Patient Allergies No Known Allergies Allergy (Verified 12/15/24 09:50) Medication List - Last Reconciled 12/15/24 by Hallie Cerrato MD baclofen 5 mg PO TID bupropion HCl XL 300 mg PO QAM celecoxib 50 mg PO BID cetirizine (All Day Allergy (cetirizine)) 10 mg PO DAILY PRN escitalopram oxalate 20 mg PO DAILY famotidine 20 mg PO BID gabapentin 600 mg PO TID hydroxyzine HCl 25 mg PO BID PRN ibuprofen mg PO 3XD sildenafil 50 mg PO DAILY PRN trazodone 50 mg PO BEDTIME PRN triamcinolone acetonide 0.1% 1 appl topical BID HPI Comments Details: Patient is a 29 year old male here today for evaluation of polyarthralgias Has been experiencing alot of pain over the past 2.5 years Joint pain - neck - shoulder - left muscle pain with spasms Currently undergoing evaluation with neuro - Knees Associated with recurrent pes anserine bursitis - Feet When he wakes up in the morning it is associated with stiffness that lasts 45mins - 1 hour. 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 No diarrhea or blood in the stool [facility] Medical History Carpal tunnel syndrome on right Heart murmur Surgical History No pertinent past surgical history Family History (Updated 12/15/24 @ 09:59 by TAMMY Sanchez) Father No problems noted. Mother No problems noted. Social History Alcohol intake: former Substance Use Type: Marijuana Current occupational status: employed Review of Systems Const Details: Review of Systems Constitutional: Denies fever, chills, weight loss ENT: Denies vision changes, eye pain or eye redness, dental caries, dry mouth GI: Denies nausea, vomiting, diarrhea, abdominal pain, change in BM Pulm: Denies SOB, KELLY, hemoptysis, wheezing Cards: Denies chest pain, palpitations Skin: Denies Raynaud's, rash, nail changes, photosensitivity, ASSISTANT MAINTENANCE MANAGER: Denies headaches, weakness, paresthesias, recurrent falls MSK: as per HPI All other systems reviewed and are unremarkable except noted above Physical Exam Vital Signs: Last Vital Signs Pulse 87 12/15/24 09:48 BP 148/79 H 12/15/24 09:48 BMI result Body Mass Index 20.8 Vital signs reviewed Physical Examination CONSTITUITIONAL Patient alert and cooperative. Well appearing and in no apparent painful distress HEENT Conjunctiva and sclera clear. Pupils equal round and reactive to light. No lymphadenopathy. CHEST/RESPIRATORY SYSTEM Normal respiratory effort and able to speak in complete sentences. Clear to auscultation bilaterally. No crackles, rales, rhonchi, wheezes heard. CARDIAC SYSTEM Regular rate and rhythm. S1 and S2 heard no murmurs. Radial pulses intact bilaterally MSK Hands: Good cluster bore operator strength bilaterally. No deformities noted. TTP of the right and left 2nd and 3rd MCPs and PIPs Wrists: Full range of motion at the wrists without pain. Mild TTP of the left wrist but full ROM. Elbows: Full range of motion without pain. No tenderness, weakness, swelling, increased warmth or erythema. Shoulders: Full range of motion without pain. TTP of bilateral AC joints R>L and TTP of the posterior shoulder joint. No TTP of the subacromial bursa bilaterally Hips: Full range of motion without pain. Hip bursa: No tenderness to palpation Knees: Full range of motion. No tenderness, swelling, increased warmth or erythema.?No effusion or crepitations. TTP of the pes anserine bursa on the right Ankles: Full range of motion. No tenderness, swelling, increased warmth or erythema.? Feet: Negative squeeze test. No tenderness to palpation or swelling of the MTPs. Tender points:?No tenderness to palpation of the bilateral trapezius, supraspinatus, greater trochanters, anterior costochondral junctions, bilateral gluteal areas, bilateral suboccipital muscle insertions Normal modified daisy's test No enthesitis Normal muscle strength throughout SKIN Dry hands with skin cracking Results Reviewed Results Reviewed: No results to review Assessment & Plan Assessment & Plan (1) Arthralgia of multiple joints: Code(s): M25.50 - Pain in unspecified joint Plan: #Polyarthralgia Patient is a 29-year-old male with no significant past medical history here today for evaluation of polyarthralgias. His history is concerning for an underlying autoimmune disease such as RA given that he has prolonged morning stiffness lasting up to an hour that improves with movement as well as his exam had tenderness to palpation of the MCPs and PIPs on bilateral hands. There was not any significant evidence of osteoarthritis with Heberden's or Kimi's nodes noted. We will send the patient for blood work and x-rays and we will review in 2 weeks Plan - CBC, CMP, ESR, CRP, RF, CCP, YESSENIA, TSH, myositis panel, dsDNA, hepatitis panel, scleroderma panel, immunoglobulins, Sjogren's and complement - XR bilateral hands, wrists, knees and shoulders - RTC 2 weeks Plan I spent 45 minutes reviewing the record and labs, taking a history, examining the patient, discussing the treatment plan and documenting in the medical record Orders: Orders Comprehensive Met. Panel Today M25.50 - Pain in unspecified joint, M45.9 - Ankylosing spondylitis of unspecified sites in spine C Reactive Protein Today M25.50 - Pain in unspecified joint, M45.9 - Ankylosing spondylitis of unspecified sites in spine Creatine Kinase Total Today M25.50 - Pain in unspecified joint, M45.9 - Ankylosing spondylitis of unspecified sites in spine Erythrocyte Sedimentation Rate Today M25.50 - Pain in unspecified joint, M45.9 - Ankylosing spondylitis of unspecified sites in spine Thyroid Stimulating Hormone Today M25.50 - Pain in unspecified joint, M45.9 - Ankylosing spondylitis of unspecified sites in spine MSA Panel Extended Today M25.50 - Pain in unspecified joint, M45.9 - Ankylosing spondylitis of unspecified sites in spine Cyclic Citrullinated Peptide Today M25.50 - Pain in unspecified joint, M45.9 - Ankylosing spondylitis of unspecified sites in spine Lyme IgG/IgM w/reflex to WB Today M25.50 - Pain in unspecified joint, M45.9 - Ankylosing spondylitis of unspecified sites in spine XR hand wrist LT Today M25.50 - Pain in unspecified joint, M45.9 - Ankylosing spondylitis of unspecified sites in spine XR shoulder RT min 2V Today M25.50 - Pain in unspecified joint, M45.9 - Ankylosing spondylitis of unspecified sites in spine XR shoulder LT min 2V Today M25.50 - Pain in unspecified joint, M45.9 - Ankylosing spondylitis of unspecified sites in spine XR sacroiliac joint min 3V Today M25.50 - Pain in unspecified joint, M45.9 - Ankylosing spondylitis of unspecified sites in spine Anti DNA DS Antibody Today M25.50 - Pain in unspecified joint, M45.9 - Ankylosing spondylitis of unspecified sites in spine Hepatitis A,B,C Profile Today M25.50 - Pain in unspecified joint, M45.9 - Ankylosing spondylitis of unspecified sites in spine Complete Blood Count Auto Diff Today M25.50 - Pain in unspecified joint, M45.9 - Ankylosing spondylitis of unspecified sites in spine Rheumatoid Factor Today M25.50 - Pain in unspecified joint, M45.9 - Ankylosing spondylitis of unspecified sites in spine Scleroderma 12 Panel Today M25.50 - Pain in unspecified joint, M45.9 - Ankylosing spondylitis of unspecified sites in spine Sjogren's Antibodies Today M25.50 - Pain in unspecified joint, M45.9 - Ankylosing spondylitis of unspecified sites in spine Immunoglobulins,IgG IgA IgM Today M25.50 - Pain in unspecified joint, M45.9 - Ankylosing spondylitis of unspecified sites in spine XR hand wrist RT Today M25.50 - Pain in unspecified joint, M45.9 - Ankylosing spondylitis of unspecified sites in spine XR knee RT 3V Today M25.50 - Pain in unspecified joint, M45.9 - Ankylosing spondylitis of unspecified sites in spine XR knee LT 3V Today M25.50 - Pain in unspecified joint, M45.9 - Ankylosing spondylitis of unspecified sites in spine YESSENIA Reflex Titer and Pattern Today M25.50 - Pain in unspecified joint, M45.9 - Ankylosing spondylitis of unspecified sites in spine Complement C3 Today M25.50 - Pain in unspecified joint, M45.9 - Ankylosing spondylitis of unspecified sites in spine Complement C4 Today M25.50 - Pain in unspecified joint, M45.9 - Ankylosing spondylitis of unspecified sites in spine Coding Level of Care Code New Pt Level 4 (25886) Diagnoses Arthralgia of multiple joints M25.50
== END 2024-12-15 10:34 | disposition home or self-care (01) ==
PROVIDERS: PCP Physician Assistant; Visit Provider Student in an Organized Health Care Education/Training Program
DX: M25.50 Pain in unspecified joint (principal)
CPT/HCPCS: 99204

== ENCOUNTER → 2024-12-15 10:41 | Outpatient (BNV) | payer OTHER, SELFPAY | PROVIDERS: PCP Physician Assistant; Visit Provider Radiology Diagnostic Radiology | DX: M45.9 Ankylosing spondylitis of unspecified sites in spine (principal) | CPT/HCPCS: 72202; 73030; 73110; 73130; 73562 ==

== ENCOUNTER 2025-01-11 08:40 | Outpatient (AMB) | payer OTHER, SELFPAY ==
--- NOTE | 2025-01-11 08:46 | A.OFFVIS_ITS ---
Vital Signs 01/11/25 08:50 Height 5 ft 9 in Weight 144 lb 6.444 oz BMI 21.3 BP 112/64 Blood Pressure Location Lt brachial Position Sitting Pulse 86 Pulse Source Pulse Oximeter Pulse Oximetry (%) 98 Oxygen Delivery Method Room Air Intake Visit Reasons: joint pain Intake Note: Patient presents for joint pain. Allergies No Known Allergies Allergy (Verified 01/11/25 08:50) Medication List - Last Reconciled 01/11/25 by Hallie Cerrato MD baclofen 5 mg PO TID bupropion HCl XL 300 mg PO QAM celecoxib 50 mg PO BID escitalopram oxalate 20 mg PO DAILY famotidine 20 mg PO BID gabapentin 600 mg PO TID hydroxyzine HCl 25 mg PO BID PRN ibuprofen mg PO 3XD sildenafil 50 mg PO DAILY PRN trazodone 50 mg PO BEDTIME PRN triamcinolone acetonide 0.1% 1 appl topical BID HPI Comments Details: Patient is a 29-year-old male with depression here today for follow up of polyarthralgias. Interval History: Patient last seen 12/15/2024. At that time he was establishing care for the management of polyarthralgias. He reported experiencing 2-1/2 years of joint pain involving several joint groups including his neck, shoulder and knees. Today he is here for follow up No change in his symptoms still complains of morning stiffness lasting up to an hour that improves with movement. Rheumatologic History: Initial history: Patient is a 29 year old male here today for evaluation of polyarthralgias Has been experiencing alot of pain over the past 2.5 years Joint pain - neck - shoulder - left muscle pain with spasms Currently undergoing evaluation with neuro - Knees Associated with recurrent pes anserine bursitis - Feet When he wakes up in the morning it is associated with stiffness that lasts 45mins - 1 hour. 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 No diarrhea or blood in the stool Current Rheumatology Medication(s): FOR[facility]LY [facility] Medical History Carpal tunnel syndrome on right Heart murmur Surgical History No pertinent past surgical history Family History Father No problems noted. Mother No problems noted. Social History Alcohol intake: former Substance Use Type: Marijuana Current occupational status: employed Review of Systems Const Details: Review of Systems Constitutional: Denies fever, chills, weight loss ENT: Denies vision changes, eye pain or eye redness, dental caries, dry mouth GI: Denies nausea, vomiting, diarrhea, abdominal pain, change in BM Pulm: Denies SOB, KELLY, hemoptysis, wheezing Cards: Denies chest pain, palpitations Skin: Denies Raynaud's, rash, nail changes, photosensitivity, [employer]ER: Denies headaches, weakness, paresthesias, recurrent falls MSK: as per HPI All other systems reviewed and are unremarkable except noted above Physical Exam Vital Signs: Last Vital Signs Pulse 86 01/11/25 08:50 BP 112/64 01/11/25 08:50 Pulse Ox 98 01/11/25 08:50 Oxygen Delivery Method Room Air 01/11/25 08:50 BMI result Body Mass Index 21.3 Vital signs reviewed Physical Examination CONSTITUITIONAL Patient alert and cooperative. Well appearing and in no apparent painful distress HEENT Conjunctiva and sclera clear. ?Pupils equal round and reactive to light. ?No lymphadenopathy. ? CHEST/RESPIRATORY SYSTEM Normal respiratory effort and able to speak in complete sentences. ?Clear to auscultation bilaterally. ?No crackles, rales, rhonchi, wheezes heard. CARDIAC SYSTEM Regular rate and rhythm. ?S1 and S2 heard no murmurs. ?Radial pulses intact bilaterally MSK Hands: ?Good facing baster strength bilaterally. No deformities noted. ?No synovitis noted to the MCPs, PIPs or DIPs. ?Tenderness to palpation of the 3rd MCP and 4th PIP on the right hand and 2nd MCP on the left hand. Wrists: ?Full range of motion at the wrists without pain. ?No tenderness to palpation or synovitis noted to the wrists. Elbows: Full range of motion without pain. No tenderness, weakness, swelling, increased warmth or erythema. Shoulders: Full range of motion without pain. No tenderness, weakness, swelling, increased warmth or erythema. Hips: Full range of motion without pain. Hip bursa: No tenderness to palpation Knees: ?Full range of motion. ?No tenderness, swelling, increased warmth or erythema.?No effusion or crepitations Ankles: Full range of motion. ?No tenderness, swelling, increased warmth or erythema.? Feet: ?Negative squeeze test. ?No tenderness to palpation or swelling of the MTPs. Tender points:?No tenderness to palpation of the bilateral trapezius, supraspinatus, greater trochanters, anterior costochondral junctions, bilateral gluteal areas, bilateral suboccipital muscle insertions SKIN Skin intact without rashes. Results Reviewed Results Reviewed: Laboratory Tests 12/15/24 11:20 WBC 7.1 RBC 5.00 Hgb 15.0 Hct 43.9 Plt Count 318 ESR 1 Sodium 140 Potassium 4.1 Chloride 106 Carbon Dioxide 28 BUN 8 L Creatinine 0.80 AST 46 H ALT 70 H Alkaline Phosphatase 85 Total Creatine Kinase 175 H C-Reactive Protein < 0.10 Total Protein 7.3 Albumin 4.6 TSH 0.91 Laboratory Tests 12/15/24 11:20 IgG Total 922 IgA Total 199 IgM 36 L Rheumatoid Factor < 13.0 Cycl Citrul Peptide IgG 17 YESSENIA Screen NEGATIVE Negative myositis panel Laboratory Tests 12/15/24 11:20 Lyme Screen IgG & IgM <0.90 Hepatitis A IgM Ab Nonreactive Hep Bs Antigen Negative Hep Bs Antibody NONREACTIVE Hep B Core Total Ab Nonreactive Hepatitis C Ab (EIA) Nonreactive XR Bilateral Hands/Wrists 12/16/24 Findings: Bones intact. No dislocations. No significant loss of joint space or osteophytes. No erosions. No radiopaque foreign body. IMPRESSION: 1. No acute findings XR Bilateral Shoulders 12/16/24 Findings: Bones intact. No dislocations. No significant arthritic change. No erosions. No radiopaque foreign body. IMPRESSION: 1. No acute findings XR Bilateral Knees 12/16/24 Findings: No fractures or dislocations. No significant loss of joint space, osteophytes, or erosions. No joint effusion. No radiopaque foreign body. IMPRESSION: 1. No acute findings. XR SI Joints 12/16/24 Findings No acute fractures. No evidence of ankylosis. No significant degenerative change. No erosions. IMPRESSION: No acute findings. No evidence of ankylosis. Assessment & Plan Assessment & Plan (1) Arthralgia of multiple joints: Code(s): M25.50 - Pain in unspecified joint Plan: #Polyarthralgias Patient is a 29-year-old male depression being evaluated for his polyarthralgias. His blood work has been overall unremarkable with a normal ESR and CRP, negative rheumatoid factor and CCP, negative YESSENIA and negative myositis panel. His exam though is concerning for an underlying autoimmune/autoinflammatory disease with MCP tenderness to palpation and prolon ged morning stiffness. I discussed with the patient and he is willing to do a trial of methotrexate for the next 4 months to see if this helps with his symptoms. Interestingly his liver enzymes were mildly elevated with a mildly elevated CK. No muscle weakness on examination. We will continue to follow this Plan - Methotrexate 15mg weekly PO - Folic acid 1mg daily - RTC 4 months - Labs before visit: CBC, CMP, ESR, CRP, CK (2) Encounter for methotrexate monitoring: Code(s): Z51.81 - Encounter for therapeutic drug level monitoring; Z79.631 - long term care pharmacist (current) use of antimetabolite agent Plan: #Long-term Current Use of Methotrexate Discussed with patient the benefits and risks of methotrexate for managing their rheumatic condition Benefits include reduced pain, reduced mortality, maintenance of remission and reduction of flares Risks include oral ulcers, photosensitivity, hepatotoxicity, hematologic toxicity, pneumonitis, flu-like symptoms (especially day after administration), nodulosis, lymphomas ? Limit alcohol and avoid Bactrim ? Monitoring: ?CBC, BMP, LFTs every 3-4 months and hepatitis serologies as needed Plan I spent 30 minutes reviewing the record and labs, taking a history, examining the patient, discussing the treatment plan and documenting in the medical record Medications: New methotrexate sodium 15 mg (6 x 2.5 mg) PO QWEEK 90 days 78 tabs 1RF M06.00 - Rheumatoid arthritis without rheumatoid factor, unspecified site folic acid 1 mg PO DAILY 90 tabs 1RF M06.00 - Rheumatoid arthritis without rheumatoid factor, unspecified site Discontinued celecoxib Do not take with any other nonsteroidal anti-inflammatory medications. Take with food. Discontinued Reason: Doctor's Order 50 mg PO BID 60 caps 3RF Coding Level of Care Code Est Pt Level 4 (25249) Complex EM visit Add On G2211 Diagnoses Arthralgia of multiple joints M25.50 Encounter for methotrexate monitoring Z51.81; Z79.631
[2025-01-11 08:50] VITALS: BP 112/64; PULSE 86; O2SAT 98; BMI 21.3
== END 2025-01-11 09:22 | disposition home or self-care (01) ==
PROVIDERS: PCP Physician Assistant; Visit Provider Student in an Organized Health Care Education/Training Program
DX: M25.50 Pain in unspecified joint (principal); Z51.81 Encounter for therapeutic drug level monitoring; Z79.631 Long term (current) use of antimetabolite agent
CPT/HCPCS: 99214

== ENCOUNTER 2025-02-15 14:00 | Outpatient (RCR) | payer OTHER, SELFPAY | END 2025-03-10 13:10 | disposition home or self-care (01) | LOC: HO.PT 14:00 | PROVIDERS: PCP Physician Assistant; Visit Provider Registered Nurse Emergency | DX: M54.2 Cervicalgia (principal) | CPT/HCPCS: 97110; 97140; 97161; 97530 ==

== ENCOUNTER 2025-02-17 10:04 | Day surgery (SDC) | payer OTHER, SELFPAY ==
[2025-02-17 10:14] VITALS: BMI 21.5
[2025-02-17 10:15] VITALS: BP 142/82; PULSE 111; RESP 16; TEMP 36.9; O2SAT 99
--- NOTE | 2025-02-17 10:33 | MHC.SHP ---
Pre-Procedural Eval Section A - 24 Hr Update-Section A only Date of Service: 02/17/25 The patient is an INPATIENT: No Changes since office visit: No Cold of Flu in the past 2 weeks, No New Medical Problems, No Changes in Medication and No Patient answered all questions The patient has been examined within 24 hours of the surgical procedure. The History & Physical has been completed within 30 days and I have reviewed it.: Yes Section B - Complete if H&P > 30 days Chief Complaint: Carpal tunnel syndrome, right upper limb Allergies: Allergies Allergy/AdvReac Type Severity Reaction Status Date / Time No Known Allergies Allergy Verified 01/11/25 08:50 Plan Diagnosis/Plan: Unchanged I have reviewed the history and physical and performed a pertinent physical examination on my patient. No changes have occurred unless specified. Time Spent With Patient Time: Total time managing care of this patient today ____ minutes.
--- NOTE | 2025-02-17 10:34 | W.PM.OPN ---
Operative Note Operative Note Date of Service: 02/17/25 Narrative: Preop diagnosis: 1. Right Carpal tunnel syndrome Postop diagnosis: same Procedure: 1. Right Carpal tunnel release Surgeon: Rosa M Armenta MD Account Services Analyst: Eldon DONOHUE Anesthesia: local block using 1% lidocaine with epinephrine Findings: Thickened transverse carpal ligament. EBL: Less than 5 mL Specimens: None Complications: None Disposition: Brought to recovery room in stable condition Plan: Follow-up for 10-14 days for wound check and suture removal Indications: The patient is 29 years old, with right carpal tunnel syndrome that has been unresponsive to nonoperative management. The risks and benefits of operative treatment including but not limited to risk of damage to blood vessels, nerves, tendons, infection, persistent pain, persistent symptoms, or possible need for additional surgery were discussed with the patient and the patient wishes to proceed with surgery. Procedure: Once consent was obtained a local block was performed using a combination of 1% lidocaine with epinephrine. The patient was then brought back to the operating suite and placed on the operative table in supine position. The right upper extremity was prepped and draped in a standard surgical fashion. Once assured that we had a good block, a 2.0 cm longitudinal incision was made centered over the carpal tunnel. The incision was made through the skin to the subcutaneous tissues using a #15 blade. Dissection was made down to the level of the transverse carpal ligament with care being taken to protect the palmar cutaneous nerve. Once the transverse carpal ligament was clearly visualized, a longitudinal incision was made in the transverse carpal ligament 1st using a #15 blade, then using tenotomy scissors under direct visualization. Care was taken to look for and protect the motor branch of the median nerve when seen in this area. Once satisfied with our carpal tunnel release the wound was copiously irrigated with normal saline and hemostasis was obtained with a brief period of local pressure. The skin edges were reapproximated with some 5.0 nylon suture material and a sterile dressing was applied. The patient appears to have tolerated the procedure well and with no complications. All digits were well vascularized at the conclusion of the case.
[2025-02-17 11:56] VITALS: BP 114/64; PULSE 94; RESP 18; O2SAT 99
== END 2025-02-17 12:18 | disposition home or self-care (01) ==
PROVIDERS: PCP Physician Assistant; Visit Provider Orthopaedic Surgery
PROC: (CPT 64721; principal; 2025-02-17 11:50)
DX: G56.01 Carpal tunnel syndrome, right upper limb (principal); R20.0 Anesthesia of skin; R20.2 Paresthesia of skin; M79.641 Pain in right hand; R01.1 Cardiac murmur, unspecified
CPT/HCPCS: 64721; J0171; J2003

== ENCOUNTER → 2025-02-17 10:04 | Outpatient (BNV) | payer OTHER, SELFPAY | PROVIDERS: PCP Physician Assistant; Visit Provider Orthopaedic Surgery | DX: G56.01 Carpal tunnel syndrome, right upper limb (principal) | CPT/HCPCS: 64721 ==

== ENCOUNTER 2025-03-02 09:50 | Outpatient (AMB) | payer OTHER, SELFPAY ==
[2025-03-02 09:51] VITALS: BMI 21.4
--- NOTE | 2025-03-02 09:51 | MHC.OFFVIS ---
Vital Signs 03/02/25 09:51 Height 5 ft 9 in Weight 145 lb BMI 21.4 Intake Visit Reasons: PO-Rt CTR 02/17/25 Intake Note: John is a 29 year old right hand dominant male who presents today for a post operative visit s/p right carpal tunnel release DOS: 02/17/[address] Rosa M Armenta. Patient reports that he is doing well, he is a bit more sore than he anticipated. Numbness has resolved. Allergies No Known Allergies Allergy (Verified 03/02/25 09:52) HPI HPI PO-Rt CTR 02/17/25: Details: John is a 29 year old right hand dominant male who presents today for a post operative visit s/p right carpal tunnel release DOS: 02/17/[address] Rosa M Armenta. Patient reports that he is doing well, he is a bit more sore than he anticipated. Numbness has resolved. [facility] Medical History Carpal tunnel syndrome on right Heart murmur Surgical History (Updated 02/17/25 @ 10:10 by Rocío Lee RN) H/O wisdom tooth extraction Family History Father No problems noted. Mother No problems noted. Social History Alcohol intake: former Substance Use Type: Marijuana Current occupational status: employed Review of Systems Const All systems reviewed & are unremarkable except as noted in HPI and below Physical Exam Vital Signs: BMI result Body Mass Index 21.4 Extrem Other: Patient is alert, oriented, and in no acute distress. Neuro: Normal sensation of the tips of all digits of the right hand at this time Vascular: Cap refill brisk Pain: No tenderness to palpation about the incision site a volar right wrist No pain with range of motion ROM: Patient was able to make a closed fist and extend all digits of the right hand fully and without difficulty Skin: Well-approximated well-healing incision site noted on the volar right wrist No lacerations or abrasions. General: No ecchymosis, erythema, or evidence of infection. Psych: Appears grossly normal Affect normal Attitude cooperative Assessment & Plan Assessment & Plan (1) Carpal tunnel syndrome: Code(s): G56.00 - Carpal tunnel syndrome, unspecified upper limb Category: Medical Plan 1. Right carpal tunnel syndrome status post carpal tunnel release DOS 02/17/2025 It appears to be recovering well postoperatively Patient is educated about the typical recovery course At this time, patient was informed he will require no further acute follow-up with us, as he appears to be recovering very well Patient was amenable to this plan Follow-up when ready to discuss left-sided surgery, sooner with any acute concerns Orders: Orders OT Evaluation and Treatment Today G56.00 - Carpal tunnel syndrome, unspecified upper limb Coding Level of Care Code Global (78196) Diagnoses Carpal tunnel syndrome G56.00
== END 2025-03-02 10:11 | disposition home or self-care (01) ==
LOC: HO.HOS 09:50
PROVIDERS: PCP Physician Assistant
DX: G56.00 Carpal tunnel syndrome, unspecified upper limb (principal)
CPT/HCPCS: 99024

== ENCOUNTER → 2025-03-02 09:50 | Outpatient (BNVA) | payer OTHER, SELFPAY | PROVIDERS: PCP Physician Assistant ==

== ENCOUNTER 2025-03-16 09:20 | Outpatient (AMB) | payer OTHER, SELFPAY ==
[2025-03-16 09:29] VITALS: BP 145/85; PULSE 102; O2SAT 98; BMI 22.3
--- NOTE | 2025-03-16 09:29 | MHC.OFFVIS ---
Vital Signs 03/16/25 09:29 Height 5 ft 9 in Weight 151 lb BMI 22.3 BP 145/85 H Blood Pressure Location Rt brachial Position Sitting Pulse 102 H Pulse Source Pulse Oximeter Pulse Oximetry (%) 98 Oxygen Delivery Method Room Air Intake Visit Reasons: PT follow up Chief Substation Operator Required: No Allergies No Known Allergies Allergy (Verified 03/16/25 09:30) Medication List - Last Reconciled 03/16/25 by Lizette Garza, EXTRUDING MACHINE OPERATOR baclofen 5 mg PO TID bupropion HCl XL 300 mg PO QAM escitalopram oxalate 20 mg PO DAILY famotidine 20 mg PO BID folic acid 1 mg PO DAILY gabapentin 600 mg PO TID hydroxyzine HCl 25 mg PO BID PRN methotrexate sodium 15 mg (6 x 2.5 mg) PO QWEEK 90 days oxycodone-acetaminophen 5-325 mg 1 tab PO Q6H PRN sildenafil 50 mg PO DAILY PRN trazodone 50 mg PO BEDTIME PRN triamcinolone acetonide 0.1% 1 appl topical BID HPI Comments Details: The patient is a 29-year-old male presenting with chronic neck pain associated with a diagnosis of rheumatoid arthritis. His neck pain has been long-standing, characterized by sharp intensity, worsening nocturnally between 4:00 and 6:00 PM. The patient has previously engaged in physical therapy while taking methotrexate prescribed by his monitoring manager, which initially yielded some symptomatic relief. However, discontinued therapy resulted in the recurrence of pain. Despite the combined use of medications such as gabapentin, cyclobenzaprine, and baclofen, along with methotrexate, the patient reports little alleviation of symptoms. The neck pain predominantly involves the left side of the neck, extending into the shoulder region and along the spine. He completed 15-20 sessions of PT but pain persists. - Onset: Unspecified duration, exacerbated in the evenings. - Quality: Sharp pain. - Location: Left side of the neck, radiating over the shoulder and down the spine. - Exacerbating Factors: Laying down, driving, and specific neck movements such as bringing the ear to the shoulder. - Relieving Factors: Methotrexate combined with physical therapy initially provided intermittent relief. - Interference: Pain impacts driving, lying down, and certain movements; worsens particularly between 4:00 and 6:00 PM. - Affect: Chronic neck pain impacts daily activities and quality of life. - Analgesia: Currently on gabapentin, cyclobenzaprine, and baclofen. Previously used methotrexate with physical therapy. - Adverse Effects: None reported from current medications. - Activities of Daily Living: Pain significantly interferes with activities, particularly at night. - Aberrant Drug Related Behaviors: None reported. [facility] Medical History (Updated 03/16/25 @ 09:50 by Chelsea Reeves APRN, BED CONTROL SPECIALIST) Carpal tunnel syndrome on right Heart murmur Surgical History (Updated 02/17/25 @ 10:10 by Rocío Lee RN) H/O wisdom tooth extraction Family History Father No problems noted. Mother No problems noted. Social History Alcohol intake: former Substance Use Type: Marijuana Current occupational status: employed Review of Systems Const Details: - Musculoskeletal: Reports chronic neck pain, particularly on the left side. - Neurological: Denies any numbness or tingling. - General: Denies additional symptoms beyond those related to neck pain. Physical Exam Vital Signs: Last Vital Signs Pulse 102 H 03/16/25 09:29 BP 145/85 H 03/16/25 09:29 Pulse Ox 98 03/16/25 09:29 Oxygen Delivery Method Room Air 03/16/25 09:29 BMI result Body Mass Index 22.3 General: awake, alert, oriented. Answers questions appropriately. Fully engaged in examination. Skin: warm, dry, intact HEENT: Normocephalic. Hearing intact. Cardiac: External chest normal in appearance. Respiratory: No cough, audible wheezing or stridor. Abdomen: without gross distension. MS: No obvious swelling or deformities. Tenderness of midline cervical vertebra and cervical paraspinal muscles on the left. Decreased cervical range of motion, most notably left lateral rotation and left lateral flexion. Neurological: Oriented to person, place, time and situation. Thought process intact. No gait abnormalities appreciated. Psychiatric: Appropriate mood and affect. Good judgment and insight. Results Reviewed Results Reviewed: 10/18/24 MRI thoracic spine Impression: Small disc herniations at several levels, this is of doubtful clinical significance. No high-grade canal stenosis or neural foraminal narrowing. 09/2024 EMG IMPRESSION: 1. This is an abnormal study. 2. There is electrodiagnostic evidence for right mild median neuropathy at the wrist, consistent with carpal tunnel syndrome. 3. There is no electrodiagnostic evidence for ulnar neuropathy, brachial plexopathy, or cervical radiculopathy. 4. There is no electrodiagnostic evidence for median neuropathy on the left. 09/2024 MRI C/S. Writing visualized on patient portal via his cell phone during visit. C3-4 no significant stenosis. Mild left facet joint spurring and uncovertebral spurring resulting in mild left foraminal stenosis C6-7 mild disc bulge superimposed central and right paracentral disc extrusion. Minimal canal stenosis. [id number] bilateral foraminal stenosis. Assessment & Plan Assessment & Plan (1) Chronic pain syndrome: Code(s): G89.4 - Chronic pain syndrome Category: Medical (2) Cervical spondylosis: Code(s): M47.812 - Spondylosis without myelopathy or radiculopathy, cervical region Category: Medical (3) Cervicalgia: Code(s): M54.2 - Cervicalgia Category: Medical Plan Diagnostic injections will be pursued to better localize and manage the patient's chronic neck pain. Pending insurance approval, these will target the areas of greatest tenderness and be evaluated using a post-procedural pain diary. Consideration for a temporary nerve stimulator will follow if significant relief is documented. Short-term steroid injections and nerve ablation will also be potential options based on initial diagnostic relief. Current medications and supportive measures will continue, and procedural steps will be taken to mitigate discomfort during diagnostic sessions. During the visit, I discussed the plan for performing diagnostic injections under x-ray guidance to target the neck's joint regions contributing to the patient's pain. I explained potential subsequent treatments, including a temporary nerve stimulator, steroid injections, and nerve ablation, conditional upon insurance approval and the efficacy of initial procedures. We explored the pros and cons of each treatment option, care strategies post-injection, and the benefits of using Ativan to ease procedural anxiety. I assured him of our intention to improve his overall pain management and explained the logistics of scheduling follow-ups post-intervention, depending on results from the pain diary kept after injections. Will schedule for left diagnostic C4-C5 C6 medial branch blocks with local anesthetic. Ativan 1 mg will be sent to take 30 minutes prior to arrival for the procedure. Patient was informed and verbally consented to the use of an ambient scribe for clinic note documentation during this visit. Coding Level of Care Code Est Pt Level 3 (54960) Complex EM visit Add On G2211 Diagnoses Chronic pain syndrome G89.4 Cervical spondylosis M47.812 Cervicalgia M54.2
--- OUTSIDE RECORDS SUMMARY | 2025-03-16 10:01 | XMS_ITS | Continuity of Care Document ---
Author Organization [facility] Address [address] [place] [id number]- Care Team Providers Care Rivet Flunky Name Role Phone Mikayla Vázquez Primary Care Physician Encounter [facility] [id number] Date(s): 02/08/25 - 03/10/[address] [facility] [address] [address]- Attending Physician: Rigo Low Admitting Physician: Rigo Low Referring Physician: Rigo Low Encounter Type: Triage Allergies, Adverse Reactions, Alerts No Known Allergies Medications BACLOFEN 5 MG TABLET BACLOFEN 5 MG TABLET, 0 Refills, Maintenance, 09/28/24 7:31:00 AM EST Start Date: 09/28/24 Status: Ordered Repeat number: 1 buPROPion 150 mg/24 hours (XL) oral tablet, extended release 2 tablet = 300 mg, By Mouth, Every 24 hours, TAKE 1 TABLET BY MOUTH EVERY DAY Start Date: 10/08/23 Status: Ordered Repeat number: 1 cyclobenzaprine 5 mg oral tablet 1 tablet = 5 mg, By Mouth, 3 times a day, for 30 days, 1 tablet in AM 2 tablets at night, # 90 tablet, 2 Refills, Acute 06/08/25 9:20:00 AM EDT, 03/10/25 9:20:00 AM EDT, [facility]/pharmacy #[id number], Partial fillupon patient request if the prescription is for a schedule II opioid drug., 173.4, cm, 12/14/24 8:28:00 EST, Height Start Date: 03/10/25 Stop Date: 06/08/25 Status: Ordered Quantity: 90.0 Unit: tablet Repeat number: 3 escitalopram 20 mg oral tablet 0 Refills, Maintenance, 09/02/24 7:05:00 AM EDT, Partial fill upon patient request if the prescription is for a schedule II opioid drug. Start Date: 09/02/24 Status: Ordered Repeat number: 1 famotidine 20 mg oral tablet Refills 0, Maintenance, 10/08/23 8:58:00 AM EST, Partial fill upon patient request if the prescription is for a schedule II opioid drug. Start Date: 10/08/23 Status: Ordered Repeat number: 1 gabapentin 300 mg oral capsule 600 mg, 2, capsule, By Mouth, 3 times a day, Refills 0, Maintenance, 09/28/24 7:31:00 AM EST, Partial fill upon patient request if the prescription is for a schedule II opioid drug. Start Date: 09/28/24 Status: Ordered Repeat number: 1 gabapentin 400 mg oral capsule 400 mg, 1, capsule, By Mouth, 3 times a day, dose increase, # 90 capsule, Refills 5, Tot. Refills 5, Maintenance, 09/29/24 12:01:00 PM EST, Route to Pharmacy Electronically, [facility]/pharmacy #[id number], Partial fill upon patient request if the prescription is for a schedule II opioid drug., 173.4, cm, 09/28/24 7:24:00 EST, Height Start Date: 09/29/24 Stop Date: 03/28/25 Status: Ordered Quantity: 90.0 Unit: capsule Repeat number: 6 hydrOXYzine hydrochloride 25 mg oral tablet 1 tablet = 25 mg, 3 times a day, PRN as needed for anxiety, 0 Refills, Maintenance, 10/08/23 8:57:00 AM EST, Partial fill upon patient request if the prescription is for a schedule II opioid drug. Start Date: 10/08/23 Status: Ordered Repeat number: 1 ibuprofen 800 mg oral tablet TAKE 1 TABLET 3 TIMES A DAY BY ORAL ROUTE NEEDED. Start Date: 10/08/23 Status: Ordered Repeat number: 1 sildenafil 50 mg oral tablet 0 Refills, Maintenance, 09/02/24 7:05:00 AM EDT, Partial fill upon patient request if the prescription is for a schedule II opioid drug. Start Date: 09/02/24 Status: Ordered Repeat number: 1 traZODone 50 mg oral tablet 50 mg, 1, tablet, TAKE 1/2 TABLET BY MOUTH NEEDED FOR SLEEP Start Date: 10/08/23 Status: Ordered Repeat number: 1 triamcinolone 0.1% topical cream 0 Refills, Maintenance, 09/02/24 7:05:00 AM EDT, Partial fill upon patient request if the prescription is for a schedule II opioid drug. Start Date: 09/02/24 Status: Ordered Repeat number: 1 Problem List Condition Confirmation Course Effective Dates Status Health St atus Informant Chest pain Confirmed Active VSD - Ventricular septal defect Confirmed Active Social History Social History Type Response Smoking Status Never smoker; Other: daily marijuana smoker; entered on: 09/04/16 Sex Female Sex Representation Male (finding) Patient Care team information Care Team Personnel Name: Mikayla Vázquez Position: Reference Physician Member Role: PCP Address: [address] [place] [address] Telecom: Care Team Related Persons Name: SONALI AGUERO Name: CARLOS HAJI Name: JUSTA HAJI Name: JUSTA HAJI Insurance Providers Guarantor name: JUSTA HAJI Health Plan Information #: 1 Payer: [facility] [employer] HMO Member Number: NA Policy Number: NA Group Number: NA
== END 2025-03-16 09:44 | disposition home or self-care (01) ==
LOC: HO.PMC 09:20
PROVIDERS: PCP Physician Assistant; Visit Provider Registered Nurse Emergency
DX: G89.4 Chronic pain syndrome (principal); M47.812 Spondylosis without myelopathy or radiculopathy, cervical region; M54.2 Cervicalgia
CPT/HCPCS: 99213

== ENCOUNTER → 2025-03-16 09:20 | Outpatient (BNVA) | payer OTHER, SELFPAY | PROVIDERS: PCP Physician Assistant; Visit Provider Registered Nurse Emergency ==

== ENCOUNTER 2025-03-31 13:37 | Outpatient (RCR) | payer OTHER, SELFPAY | END 2025-09-26 12:31 | disposition home or self-care (01) | LOC: HO.OT 13:37 | PROVIDERS: PCP Physician Assistant | DX: G56.01 Carpal tunnel syndrome, right upper limb (principal) | CPT/HCPCS: 97110; 97140; 97165 ==

== ENCOUNTER 2025-04-07 06:14 | Outpatient (REF) | payer OTHER, SELFPAY ==
--- NOTE | ~2025-04-07 | FL_ITS ---
EXAMINATION: FL GUIDANCE ONLY HISTORY: M47.812 - Spondylosis without myelopathy or radiculopathy, cervical region COMPARISON: None available. TECHNIQUE: Fluoroscopy time: 0.1 minutes. Cumulative Dose: 0.547 mGy. DAP: 0.85802 mGym2 Images: 2. FINDINGS: AP and lateral fluoroscopic spot films of the cervical spine demonstrate needles and contrast material in the left neck. FL/FL guidance in treatment room IMPRESSION: Fluoroscopy during procedure. Please see procedure report for additional information. Electronically signed by: Salas Jose MD 04/07/2025 02:08 PM EDT
== END 2025-04-07 06:15 | disposition home or self-care (01) ==
LOC: CF 06:14
PROVIDERS: Visit Provider Internal Medicine
DX: M47.812 Spondylosis without myelopathy or radiculopathy, cervical region (principal)
CPT/HCPCS: 64490; 64491; J2003; J2795; Q9967

== ENCOUNTER 2025-04-07 09:28 | Outpatient (AMB) | payer OTHER, SELFPAY ==
[2025-04-07 09:33] VITALS: BP 115/81; PULSE 112; RESP 16; O2SAT 98
--- NOTE | 2025-04-07 09:33 | MHC.OFFVIS ---
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 Denies any recent cough, cold, infection, fever or other significant changes in medical history since last office visit. [facility] Medical History (Updated 03/16/25 @ 09:50 by Chelsea Reeves APRN, SETTER JUICE PACKAGING MACHINES) Carpal tunnel syndrome on right Heart murmur Surgical History (Updated 02/17/25 @ 10:10 by Rocío Lee RN) H/O wisdom tooth extraction Family History Father No problems noted. Mother No problems noted. Social History Alcohol intake: former Substance Use Type: Marijuana Current occupational status: employed Physical Exam Vital Signs: Last Vital Signs Pulse 92 04/07/25 10:22 Resp 16 04/07/25 10:22 BP 114/56 L 04/07/25 10:22 Pulse Ox 97 04/07/25 10:22 Oxygen Delivery Method Room Air 04/07/25 10:22 Office Procedures Cervical/Thoracic Facet Inj Details: Diagnostic Cervical Medial Branch Block, left C3, C4, C5 medial branches After obtaining written consent, pre-procedure blood pressure and pulse were recorded and are in the nursing record for review. The patient was placed in a lateral position. The respective cervical area was prepped with chloraprep and draped in sterile fashion. The skin over the target medial branch nerves was anesthetized with 0.5% lidocaine. A 25 gauge 1.5 inch needle was inserted into the target medial branch nerve under fluoroscopic guidance. No paresthesias were elicited with needle placement and aspiration was negative for blood and CSF. Next, 0.2cc of omnipaque 180 was injected to verify positioning. Next 0.5 ml 0.5% ropivicaine was injected (0.5 cc total per level). The identical procedure was performed at the remaining levels. The skin was cleansed and a sterile bandage was applied. Following the procedure the patient's vital signs were stable. The patient tolerated the procedure well and no complications were encountered. Following the procedure the patient's vital signs were stable. The patient was discharged home in good condition with post-procedural instructions. Time Out: Immediately prior to the procedure, the following was verbally confirmed that there is a signed consent form and that the correct patient, planned procedure, site and side are consistent with documentation and that necessary equipment and/or blood products are available prior to the start of the case. Complications: none EBL: <5 cc 50099 - with Fluoroscopy 49498 - second level, with Fluoroscopy Procedure code (CPT) selection complete Assessment & Plan Assessment & Plan (1) Cervical spondylosis: Code(s): M47.812 - Spondylosis without myelopathy or radiculopathy, cervical region Category: Medical Plan Patient is status post left C3, C4, C5. Patient tolerated procedure well and was discharged home in stable condition with discharge instructions. All questions were answered. Recommended a six-month regimen of cervical extension and lordosis exercises to help with cervical muscle spasm. Also provided information about utilizing cervical pillows with adequate support for side-lying. Patient expressed understanding. Orders: Orders AMB Facet Injection-Cervical/Thoracic Today Peter Gutierrez MD M47.812 - Spondylosis without myelopathy or radiculopathy, cervical region FL guidance in treatment room Today Chelsea Reeves APRN, SETTER JUICE PACKAGING MACHINES M47.812 - Spondylosis without myelopathy or radiculopathy, cervical region Medications: New lorazepam (Ativan) Take 30 minutes prior to arrival to procedure 1 mg PO ONCE 1 tab 0RF anxiety Chelsea Reeves APRN, SETTER JUICE PACKAGING MACHINES Coding Level of Care Code Procedure Only Diagnoses Cervical spondylosis M47.812 CPT Codes Facet Injection Cervical/Thoracic - CPT: 12785 - with Fluoroscopy ([id number]) Facet Injection Cervical/Thoracic - CPT: 37720 - second level, with Fluoroscopy ([id number])
[2025-04-07 10:22] VITALS: BP 114/56; PULSE 92; RESP 16; O2SAT 97
== END 2025-04-07 10:26 | disposition home or self-care (01) ==
LOC: HO.PMCPRC 09:28
PROVIDERS: PCP Physician Assistant; Visit Provider Internal Medicine
DX: M47.812 Spondylosis without myelopathy or radiculopathy, cervical region (principal)
CPT/HCPCS: 64490; 64491

== ENCOUNTER 2025-04-13 07:49 | Outpatient (REF) | payer OTHER, SELFPAY ==
--- NOTE | 2025-04-13 07:55 | PFT_ITS ---
Flows: FEV1: 71 % of predicted at 3.08 L FVC: 75 % of predicted at 3.94 L FEV1/FVC: 78 % Bronchodilator response: Absent Volumes: Total lung capacity: 73 % of predicted at 5.05 L Residual volume: 75 % of predicted at 1.11 L Slow vital capacity: 73 % of predicted at 3.95 L Expiratory reserve volume: 56 % of predicted at 0.92 L Diffusion capacity: Mildly decreased. Impression: Moderate restrictive ventilatory defect with no bronchodilator response. Decreased expiratory reserve volume suggests extrathoracic restriction likely secondary to abdominal obesity. Combination of restrictive ventilatory defect and decreased diffusion capacity suggests underlying pulmonary parenchymal disease. Clinical correlation is advised. MTDD
[2025-04-13 08:31] VITALS: PULSE 92; O2SAT 97
== END 2025-04-13 07:50 | disposition home or self-care (01) ==
LOC: HO.RESP 07:49
PROVIDERS: PCP Physician Assistant; Visit Provider Physician Assistant
DX: R06.02 Shortness of breath (principal)
CPT/HCPCS: 94010; 94640; 94727; 94729

== ENCOUNTER → 2025-04-13 07:55 | Outpatient (BNV) | payer OTHER, SELFPAY | PROVIDERS: PCP Physician Assistant; Visit Provider Internal Medicine Pulmonary Disease | DX: R06.02 Shortness of breath (principal) | CPT/HCPCS: 94060; 94727; 94729 ==

== ENCOUNTER 2025-04-13 10:49 | Outpatient (AMB) | payer OTHER, SELFPAY ==
[2025-04-13 10:51] VITALS: BP 121/77; PULSE 103; RESP 16; O2SAT 97; BMI 21.9
--- NOTE | 2025-04-13 10:51 | MHC.OFFVIS ---
Vital Signs 04/13/25 10:51 Height 5 ft 9 in Weight 148 lb BMI 21.9 BP 121/77 Blood Pressure Location Rt brachial Position Sitting Respiration 16 Pulse 103 H Pulse Source Pulse Oximeter Pulse Oximetry (%) 97 Oxygen Delivery Method Room Air Intake Visit Reasons: s/p Left Dx C4-C5-C6 MBB Sample Body Builder Required: No Accompanied by: Self / Same As Patient Allergies No Known Allergies Allergy (Verified 04/13/25 10:55) HPI Comments Details: The patient is a 29-year-old male presenting with cervical pain management issues. He received left C4, C5, and C6 medial branch blocks, experiencing 100% temporary relief that lasted approximately eight hours post-procedure. The initial pain level reduced from 6 to 0 but returned to baseline within 24 hours. Exercises and medications have been ineffective in further alleviating the pain. The patient is considering a peripheral nerve stimulator for longer-term relief and wishes to minimize medication dependency. - Duration: 100% pain relief lasted eight hours; returned to baseline within 24 hours - Quality and character: Neck pain, persistent post-block - Location: Cervical region, primarily left side - Radiation: Not mentioned - Exacerbating factors: Passage of time post-block - Relieving factors: Medial branch block provided temporary relief - Effects: Limitations in obtaining and maintaining long-term pain relief - Affect: No impact on mood or psychological status reported - Analgesia: No significant improvement with current cervical pain medication; pain level 6 pre-block, 0 temporarily post-block; goal to reduce medication dependency - Adverse Effects: No reported medication side effects - Activities of Daily Living: No specific interference noted, but interest in improving functional status with alternative treatments - Aberrant Drug Related Behaviors: None noted [facility] Medical History (Updated 03/16/25 @ 09:50 by Chelsea Reeves APRN, MARKETING SYSTEMS MANAGER) Carpal tunnel syndrome on right Heart murmur Surgical History (Updated 02/17/25 @ 10:10 by Rocío Lee RN) H/O wisdom tooth extraction Family History Father No problems noted. Mother No problems noted. Social History Alcohol intake: former Substance Use Type: Marijuana Current occupational status: employed Review of Systems Const Details: - Musculoskeletal: Reports cervical pain, particularly persistent post-procedure - Neurological: Denies additional neurological symptoms or new deficits Physical Exam Vital Signs: Last Vital Signs Pulse 103 H 04/13/25 10:51 Resp 16 04/13/25 10:51 BP 121/77 04/13/25 10:51 Pulse Ox 97 04/13/25 10:51 Oxygen Delivery Method Room Air 04/13/25 10:51 BMI result Body Mass Index 21.9 General: awake, alert, oriented. Answers questions appropriately. Fully engaged in examination. Skin: warm, dry, intact HEENT: Normocephalic. Hearing intact. Cardiac: External chest normal in appearance. Respiratory: No cough, audible wheezing or stridor. Abdomen: without gross distension. MS: No obvious swelling or deformities. Tenderness of midline cervical vertebra and cervical paraspinal muscles on the left. Decreased cervical range of motion Neurological: Oriented to person, place, time and situation. Thought process intact. No gait abnormalities appreciated. Psychiatric: Appropriate mood and affect. Good judgment and insight. Results Reviewed Results Reviewed: 10/18/24 MRI thoracic spine Impression: Small disc herniations at several levels, this is of doubtful clinical significance. No high-grade canal stenosis or neural foraminal narrowing. 09/2024 EMG IMPRESSION: 1. This is an abnormal study. 2. There is electrodiagnostic evidence for right mild median neuropathy at the wrist, consistent with carpal tunnel syndrome. 3. There is no electrodiagnostic evidence for ulnar neuropathy, brachial plexopathy, or cervical radiculopathy. 4. There is no electrodiagnostic evidence for median neuropathy on the left. 09/2024 MRI C/S. Writing visualized on patient portal via his cell phone during visit. C3-4 no significant stenosis. Mild left facet joint spurring and uncovertebral spurring resulting in mild left foraminal stenosis C6-7 mild disc bulge superimposed central and right paracentral disc extrusion. Minimal canal stenosis. [id number]-[id number]-csyyrzog bilateral foraminal stenosis. Assessment & Plan Assessment & Plan (1) Chronic pain syndrome: Code(s): G89.4 - Chronic pain syndrome Category: Medical (2) Cervical spondylosis: Code(s): M47.812 - Spondylosis without myelopathy or radiculopathy, cervical region Category: Medical (3) Cervicalgia: Code(s): M54.2 - Cervicalgia Category: Medical Plan The current cervical pain will be managed by exploring the peripheral nerve stimulator, pending insurance approval. This approach aims to achieve longer-lasting relief and reduce dependency on medications. The patient understands the procedure, its benefits, potential risks, and post-procedure care. Physical therapy is planned to optimize functional recovery once pain is satisfactorily controlled. I reviewed the patient's response following the medial branch blocks, which provided 100% temporary relief. We discussed the peripheral nerve stimulator, detailing its function to disrupt pain signals and provide extended pain relief for 9 months/up to a year. The patient understood the procedure, risks, benefits, and the necessity for careful post-procedure activity. Agreeing to proceed, I will submit for insurance approval. We plan follow-up coordination with physical therapy to optimize muscle function and pain management during this period. Continue with the exercises that were recommended by Dr. Gutierrez at last visit. Will schedule for left C5 sprint peripheral nerve stimulator under fluoroscopy guidance with local anesthetic. Patient was informed and verbally consented to the use of an ambient scribe for clinic note documentation during this visit. Patient Instructions: - Await insurance approval for peripheral nerve stimulator placement - Follow activity guidelines to prevent dislodging the device post-procedure - Continue prescribed physical therapy exercises - Monitor and report any concerns or changes in pain levels - Schedule follow-up appointments as directed once the stimulator is in place Coding Level of Care Code Est Pt Level 3 (09047) Complex EM visit Add On G2211 Diagnoses Chronic pain syndrome G89.4 Cervical spondylosis M47.812 Cervicalgia M54.2
== END 2025-04-13 11:14 | disposition home or self-care (01) ==
LOC: HO.PMC 10:50
PROVIDERS: PCP Physician Assistant; Visit Provider Registered Nurse Emergency
DX: G89.4 Chronic pain syndrome (principal); M47.812 Spondylosis without myelopathy or radiculopathy, cervical region; M54.2 Cervicalgia
CPT/HCPCS: 99213

== ENCOUNTER 2025-04-21 08:54 | Outpatient (REF) | payer OTHER, SELFPAY ==
[2025-04-21 09:06] LABS: MANUAL DIFF FLAG NO
--- OUTSIDE RECORDS SUMMARY | 2025-04-21 09:29 | XMS_ITS | Continuity of Care Document ---
Author Organization [facility] Address [address] [place] [address], [address]r d Floor, [address] [place] [id number]- Care Team Providers Care Supervisor [employer] Name Role Phone Mikayla Vázquez Primary Care Physician [id number] Date(s): 03/16/25 - 04/15/25 [facility] [address] [facility] 3rd Floor, [address] [place] [id number] Encounter Type: Triage Allergies, Adverse Reactions, Alerts [...] 10/08/23 Status: Ordered Repeat number: 1 cyclobenzaprine 10 mg oral tablet 10 mg, 1, tablet, By Mouth, 3 times a day, PRN, for 30 days, # 90 tablet, Refills 1, Tot. Refills 1, Acute 05/30/25 12:26:00 PM EDT, Spasm for spasm, 03/31/25 12:26:00 PM EDT, Route to Pharmacy Electronically, [facility]/pharmacy #[id number], Partial fill upon patient request if the prescription is for a schedule II opioid drug., 173.4, cm, 03/10/25 9:26:00 EDT, Height Start Date: 03/31/25 Stop Date: 05/30/25 Status: Ordered Quantity: 90.0 Unit: tablet Repeat number: 2 cyclobenzaprine 5 mg oral tablet 1 tablet = 5 mg, By Mouth, 3 times a day, for 30 days, 1 tablet in AM 2 tablets at night, # 90 tablet, 2 Refills, Acute 06/08/25 9:20:00 AM EDT, 03/10/25 9:20:00 AM EDT, [facility]/pharmacy #[id number], Partial fillupon patient request if the prescription [...] 12:01:00 PM EST, Route to Pharmacy Electronically, [facility]/pharmacy #[id number], Partial fill upon patient request if the [...] Date: 10/08/23 Status: Ordered Repeat number: 1 LORazepam 1 mg oral tablet See Instructions, PRN as needed for anxiety, 1 tablet By Mouth 15 mintues prior to LP, # 1 tablet, 0 Refills, Maintenance, 04/11/25 3:48:00 PM EDT, Tablet, [facility]/pharmacy #[id number], Partial fill upon patientrequest if the prescription is for a schedule II opioid drug., 173.4, cm, 03/10/25 9:26:00 EDT, Height Start Date: 04/11/25 Status: Ordered Quantity: 1.0 Unit: tablet Repeat number: 1 sildenafil 50 mg oral [...] Position: Reference Physician Member Role: PCP Address: [address] [place] [address] Telecom: Care Team Related Persons Name: SONALI AGUERO Name: CARLOS HAJI Name: JUSTA HAJI Name: JUSTA HAJI Insurance Providers Guarantor name: JUSTA LUNAOINTE Health Plan Information #: 1 Payer: [facility] HMO Payer Identifier: GARCÍA Member Number: [id number] Group Number: [id number] Subscriber Identifier: [id number] Relationship to Subscriber: self Coverage Type: Commercial Managed Care - HMO Coverage Verification Date: NA Telecom: NA Address: NA
[2025-04-21 10:01] LABS: Basophils Absolute Auto 0.1 X10*3/uL (0.0-0.2); Basophils Percent Auto 1.1 % (0-2); Eosinophils Absolute Auto 0.3 X10*3/uL (0.0-0.4); Hematocrit 45.2 % (42.0-52.0); Hemoglobin 15.5 g/dl (14.0-18.0); Imm Gran Abs Auto 0.06 X10*3/uL (0.00-0.03); Imm Gran Pct Auto 0.6 % (0.0-0.4); Lymphocytes Absolute Auto 3.7 X10*3/uL (1.2-4.9); Lymphocytes Percent Auto 36.1 % (20-40); Mean Corpuscular HGB Conc 34.3 g/dl (31.0-36.0); Mean Corpuscular Hemoglobin 30.6 pg (27.0-33.0); Mean Corpuscular Volume 89.3 fL (80.0-98.0); Mean Platelet Volume 10.2 fL (9.4-12.4); Monocytes Absolute Auto 1.1 X10*3/uL (0.1-1.2); Monocytes Percent Auto 11.1 % (2-11); Neutrophils Absolute Auto 4.9 x10*3/uL (2.0-8.3); Neutrophils Percent Auto 48.1 % (45-73); Platelet Count 380 X10*3/uL (160-400); Red Blood Count 5.06 X10*6/uL (4.60-5.80); Red Cell Distribution Width 12.8 % (11.0-16.0); White Blood Count 10.3 X10*3/uL (4.8-10.8)
[2025-04-21 10:19] LABS: Alanine Aminotransferase 23 U/L (0-40); Albumin Level 4.7 g/dL (3.5-5.0); Alkaline Phosphatase 95 U/L (39-117); Anion Gap 9 (12-20); Aspartate Amino Transferase 21 U/L (5-37); Bilirubin Total 0.5 mg/dL (0.0-1.0); Blood Urea Nitrogen 10 mg/dL (9-16); C Reactive Protein < 0.10 mg/dL (< or = 0.50); Calcium 9.4 mg/dL (8.4-10.2); Carbon Dioxide 31 mmol/L (22-29); Chloride 104 mmol/L (96-108); Estimated Glomerular Filt Rate > 60; Glucose Random 92 mg/dL (60-115); Potassium 3.8 mmol/L (3.3-5.1); Sodium 140 mmol/L (135-145); Total Protein 6.8 g/dL (6.5-8.0)
[2025-04-21 10:44] LABS: Erythrocyte Sedimentation Rate 1 MM/HR (0-15)
[2025-04-26 21:03] LABS: Aldolase 5.3 U/L (<=8.1)
== END 2025-04-21 08:55 | disposition home or self-care (01) ==
LOC: HO.LAB 08:54
PROVIDERS: PCP Physician Assistant; Visit Provider Student in an Organized Health Care Education/Training Program
DX: M06.00 Rheumatoid arthritis without rheumatoid factor, unspecified site (principal)
CPT/HCPCS: 36415; 80053; 82085; 82550; 85025; 85652; 86140

== ENCOUNTER 2025-05-03 15:56 | Outpatient (AMB) | payer OTHER, SELFPAY ==
--- OUTSIDE RECORDS SUMMARY | 2025-04-30 23:59 | XMS_ITS | Continuity of Care Document ---
Author Organization [facility] Address [address] [place] [address], [address]r d Floor, [address] [place] [id number]- Care Team Providers Care Eco Industrial [employer] Consultant Name Role Phone Mikayla Vázquez Primary Care Physician [phone] Encounter [facility] Date(s): 03/31/25 - 04/30/25 [facility] [address] [facility] 3rd Floor, [address] [place] [id number] Encounter Type: Triage Allergies, Adverse Reactions, Alerts [...] 12:26:00 PM EDT, Route to Pharmacy Electronically, [facility]/pharmacy #[id number], Partial fill upon patient request if the [...] 9:20:00 AM EDT, 03/10/25 9:20:00 AM EDT, [facility]/pharmacy #[id number], Partial fillupon patient request [...] 12:01:00 PM EST, Route to Pharmacy Electronically, [facility]/pharmacy #[id number], Partial fill upon patient [...] Position: Reference Physician Member Role: PCP Address: [address] [place] [address] Telecom: Care Team Related Persons Name: SONALI AGUERO Name: CARLOS HAJI Name: JUSTA HAJI Name: JUSTA HAJI Insurance Providers Guarantor name: JUSTA LUNAOINTE Health Plan Information #: 1 Payer: [facility] HMO Payer Identifier: GARCÍA Member Number: [id number] Group Number: [id number] Subscriber Identifier: [id number] Relationship to Subscriber: self Coverage Type: Commercial Managed Care - HMO Coverage Verification Date: NA Telecom: NA Address: NA
[2025-05-03 15:58] VITALS: BP 128/70; PULSE 112; O2SAT 98; BMI 21.6
--- NOTE | 2025-05-03 15:58 | A.OFFVIS_ITS ---
Vital Signs 05/03/25 15:58 Height 5 ft 9 in Weight 146 lb 2.664 oz BMI 21.6 BP 128/70 Blood Pressure Location Lt brachial Position Sitting Pulse 112 H Pulse Source Pulse Oximeter Pulse Oximetry (%) 98 Oxygen Delivery Method Room Air Intake Visit Reasons: joint pain Intake Note: Patient presents for follow up on arthralgia with lab review today. Patient would like to discuss the Methotrexate today. Allergies No Known Allergies Allergy (Verified 05/03/25 16:01) Medication List - Last Reconciled 05/03/25 by Hallie Cerrato MD baclofen 10 mg PO TID bupropion HCl XL 300 mg PO QAM cyclobenzaprine 10 mg PO TID PRN escitalopram oxalate 20 mg PO DAILY famotidine 20 mg PO BID gabapentin 600 mg PO TID hydroxyzine HCl 25 mg PO BID PRN lorazepam (Ativan) 1 mg PO ONCE oxycodone-acetaminophen 5-325 mg 1 tab PO Q6H PRN sildenafil 50 mg PO DAILY PRN trazodone 50 mg PO BEDTIME PRN triamcinolone acetonide 0.1% 1 appl topical BID HPI Comments Details: Patient is a 29-year-old male with depression here today for follow up of polyarthralgias. Interval History: Patient last seen 01/11/25 with me. At that time he was following up for his polyarthralgias. Given his MCP and PIP exam findings we decided to do a trial of methotrexate. Since that visit patient has followed up with pain management for his neck pain. He received 100% pain relief after the medial branch blocks and is currently considering peripheral nerve stimulator. Patient noted some improvement in his neck and shoulder pain on the meth otrexate. But had more significant improvement in pain from his nerve block trial. Rheumatologic History: Initial history: Patient is a 29 year old male here today for evaluation of polyarthralgias Has been experiencing alot of pain over the past 2.5 years Joint pain - neck - shoulder - left muscle pain with spasms Currently undergoing evaluation with neuro - Knees Associated with recurrent pes anserine bursitis - Feet When he wakes up in the morning it is associated with stiffness that lasts 45mins - 1 hour. 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 No diarrhea or blood in the stool Current Rheumatology Medication(s): Methotrexate 15mg weekly Folic acid 1mg daily PFSH Medical History (Updated 03/16/25 @ 09:50 by Chelsea Reeves APRN, TAG AND LABEL CUTTER) Carpal tunnel syndrome on right Heart murmur Surgical History (Updated 02/17/25 @ 10:10 by Rocío Lee RN) H/O wisdom tooth extraction Family History Father No problems noted. Mother No problems noted. Social History Alcohol intake: former Substance Use Type: Marijuana Current occupational status: employed Review of Systems Const Details: Review of Systems Constitutional: Denies fever, chills, weight loss ENT: Denies vision changes, eye pain or eye redness, dental caries, dry mouth GI: Denies nausea, vomiting, diarrhea, abdominal pain, change in BM Pulm: Denies SOB, KELLY, hemoptysis, wheezing Cards: Denies chest pain, palpitations Skin: Denies Raynaud's, rash, nail changes, photosensitivity, STONE DRILLER: Denies headaches, weakness, paresthesias, recurrent falls MSK: as per HPI All other systems reviewed and are unremarkable except noted above Physical Exam Vital Signs: BMI result Body Mass Index 21.6 Vital signs reviewed Physical Examination CONSTITUITIONAL Patient alert and cooperative. Well appearing and in no apparent painful distress HEENT Conjunctiva and sclera clear. ?Pupils equal round and reactive to light. ?No lymphadenopathy. ? CHEST/RESPIRATORY SYSTEM Normal respiratory effort and able to speak in complete sentences. ?Clear to auscultation bilaterally. ?No crackles, rales, rhonchi, wheezes heard. CARDIAC SYSTEM Regular rate and rhythm. ?S1 and S2 heard no murmurs. ?Radial pulses intact bilaterally MSK Hands: ?Good automotive center manager strength bilaterally. No deformities noted. ?No synovitis no connor to the MCPs, PIPs or DIPs. No TTP of the MCPs or PIPs Wrists: ?Full range of motion at the wrists without pain. ?No tenderness to palpation or synovitis noted to the wrists. Elbows: Full range of motion without pain. No tenderness, weakness, swelling, increased warmth or erythema. Shoulders: Full range of motion without pain. No tenderness, weakness, swelling, increased warmth or erythema. Knees: ?Full range of motion. ?No tenderness, swelling, increased warmth or erythema.?No effusion or crepitations Ankles: Full range of motion. ?No tenderness, swelling, increased warmth or kristi thema.? Feet: ?Negative squeeze test. ?No tenderness to palpation or swelling of the MTPs. Tender points:?No tenderness to palpation of the bilateral trapezius, supraspinatus, greater trochanters, anterior costochondral junctions, bilateral gluteal areas, bilateral suboccipital muscle insertions SKIN Skin intact without rashes. Results Reviewed Results Reviewed: Laboratory Tests 04/21/25 09:04 WBC 10.3 RBC 5.06 Hgb 15.5 Hct 45.2 Plt Count 380 ESR 1 Sodium 140 Potassium 3.8 Chloride 104 Carbon Dioxide 31 H BUN 10 Creatinine 1.04 AST 21 ALT 23 Total Creatine Kinase 90 C-Reactive Protein < 0.10 Aldolase 5.3 Immunoglobulins 12/15/24 11:20 IgG Total 922 IgA Total 199 IgM 36 L Rheumatology Labs 12/15/24 11:20 Rheumatoid Factor < 13.0 Cycl Citrul Peptide IgG 17 YESSENIA Screen NEGATIVE CHELLY-1 Antibody <11 EJ Antibody <11 OJ Antibody <11 Mi-2-Alpha Ab <11 Mi-2-Beta Ab <11 NXP-2 Ab <11 PL-7 Antibody <11 PL-12 Antibody <11 SRP Ab <11 MDA5 Ab <11 Myos P155/140 TIF1-g Ab <11 SS-A/Ro Antibody <1.0 NEG SS-B/La Antibody <1.0 NEG U1 snRNA A Antibody <11 U1 snRNA C Antibody <11 U1 snRNA 70kD Antibody <11 Scl-70 Scleroderma Ab <11 A-PM Scleroderma 75 Ab <11 A-PM Scleroderma 100 Ab <11 Double Strand DNA Ab <1 Th/To SOLAR ENERGY SYSTEM INSTALLER Ab <11 U3-SOLAR ENERGY SYSTEM INSTALLER (Fibrillarin) Ab <11 RNA Polymerase III RP11 Ab <11 RNA Polymerase III RP155 Ab <11 Centromere B Antibody <11 Centromere Protein A Ab <11 HMGCR IgG Antibody <2 NT5C1A IgG Antibody <5 Complement C3 117 Complement C4 18 XR Bilateral Hands/Wrists 12/16/24 Findings: Bones intact. No dislocations. No significant loss of joint space or osteophytes. No erosions. No radiopaque foreign body. IMPRESSION: 1. No acute findings XR Bilateral Shoulders 12/16/24 Findings: Bones intact. No dislocations. No significant arthritic change. No erosions. No radiopaque foreign body. IMPRESSION: 1. No acute findings XR Bilateral Knees 12/16/24 Findings: No fractures or dislocations. No significant loss of joint space, osteophytes, or erosions. No joint effusion. No radiopaque foreign body. IMPRESSION: 1. No acute findings. XR SI Joints 12/16/24 Findings No acute fractures. No evidence of ankylosis. No significant degenerative change. No erosions. IMPRESSION: No acute findings. No evidence of ankylosis. Assessment & Plan Assessment & Plan (1) Arthralgia of multiple joints: Code(s): M25.50 - Pain in unspecified joint Plan: #Polyarthralgias Patient is a 29-year-old male depression being evaluated for his polyarthralgias. His blood work overall unremarkable with a normal ESR and CRP, negative rheumatoid factor and CCP, negative YESSENIA and negative myositis panel. We did a trial of methotrexate see if this would help but there was not much improvement on this. We will stop the methotrexate and re-evaluate his pain. It is likely that all of his pain could be due to his C-spine issues and muscle spasms. No confirmed diagnosis of rheumatoid arthritis or any other inflammatory arthritis at this time, it is still being evaluated. Plan - Stop methotrexate and folic acid - RTC 4 months - no labs before visit Plan I spent 20 minutes reviewing the record and labs, taking a history, examining the patient, discussing the treatment plan and documenting in the medical record Medications: Discontinued oxycodone-acetaminophen 5-325 mg Partial Fill upon patient request. Discontinued Reason: Patient no longer taking 1 tab PO Q6H PRN 5 tabs 0RF pain, severe methotrexate sodium Discontinued Reason: Doctor's Order 15 mg (6 x 2.5 mg) PO QWEEK 90 days 78 tabs 1RF M06.00 - Rheumatoid arthritis without rheumatoid factor, unspecified site folic acid Discontinued Reason: Doctor's Order 1 mg PO DAILY 90 tabs 1RF M06.00 - Rheumatoid arthritis without rheumatoid factor, unspecified site Coding Level of Care Code Est Pt Level 3 (17044) Diagnoses Arthralgia of multiple joints M25.50
== END 2025-05-03 16:20 | disposition home or self-care (01) ==
LOC: HO.RHE 15:56
PROVIDERS: PCP Physician Assistant; Visit Provider Student in an Organized Health Care Education/Training Program
DX: M25.50 Pain in unspecified joint (principal)
CPT/HCPCS: 99213

== ENCOUNTER 2025-05-19 06:39 | Outpatient (REF) | payer OTHER, SELFPAY ==
--- NOTE | ~2025-05-19 | FL_ITS ---
EXAMINATION: FL GUIDANCE ONLY HISTORY: M47.812 - Spondylosis without myelopathy or radiculopathy, cervical region COMPARISON: None available. TECHNIQUE: Fluoroscopy time: 0.1 minutes. Cumulative Dose: 0.38 mGy. DAP: [id number] mGym2 Images: 3. FINDINGS: Fluoroscopic spot films of the cervical spine demonstrate a needle and subsequently an electrode in place on the left. FL/FL guidance in treatment room IMPRESSION: Fluoroscopy during procedure. Please see procedure report for additional information. Electronically signed by: Salas Jose MD 05/19/2025 03:01 PM EDT
== END 2025-05-19 06:40 | disposition home or self-care (01) ==
LOC: CF 06:39
PROVIDERS: Visit Provider Internal Medicine
DX: M47.812 Spondylosis without myelopathy or radiculopathy, cervical region (principal); G89.4 Chronic pain syndrome
CPT/HCPCS: 64555; C1778; J2003

== ENCOUNTER 2025-05-19 10:57 | Outpatient (AMB) | payer OTHER, SELFPAY ==
--- NOTE | 2025-05-19 11:01 | MHC.OFFVIS ---
Vital Signs 05/19/25 11:02 05/19/25 12:00 Height 5 ft 9 in Weight 148 lb BMI 21.9 BP 140/85 H 111/70 Blood Pressure Location Lt brachial Lt brachial Position Sitting Sitting Respiration 16 16 Pulse 115 H 115 H Pulse Source Pulse Oximeter Pulse Oximeter Pulse Oximetry (%) 98 99 Oxygen Delivery Method Room Air Room Air Intake Visit Reasons: Left C5 Sprint Allergies No Known Allergies Allergy (Verified 05/03/25 16:01) HPI HPI Left C5 Sprint: Details: Patient presents for scheduled procedure. Denies any recent cough, cold, infection, fever or other significant changes in medical history since last office visit. [facility] Medical History (Updated 03/16/25 @ 09:50 by Chelsea Reeves APRN, PRODUCE SPECIALIST) Carpal tunnel syndrome on right Heart murmur Surgical History (Updated 02/17/25 @ 10:10 by Rocío Lee RN) H/O wisdom tooth extraction Family History Father No problems noted. Mother No problems noted. Social History Alcohol intake: former Substance Use Type: Marijuana Current occupational status: employed Physical Exam Vital Signs: Last Vital Signs Pulse 115 H 05/19/25 12:00 Resp 16 05/19/25 12:00 BP 111/70 05/19/25 12:00 Pulse Ox 99 05/19/25 12:00 Oxygen Delivery Method Room Air 05/19/25 12:00 BMI result Body Mass Index 21.9 Office Procedures Details: Cervical Medial Branch Nerve Stimulation Lead Placement, SPR (Sprint) System, Left C5 ? After the risks, benefits and alternatives were discussed with the patient and informed consent was obtained, patient was placed in the prone position and padded to foster comfort. The skin overlying the cervical spine was prepped and draped in sterile fashion. Fluoroscopy was used to identify the spinous process and lamina over the C5 articular pillar. After identifying and marking the intended target along the course of the medial branch nerve, the skin around the planned entry point and the subcutaneous tissues were injected with lidocaine 1%. An introducer needle and stimulating probe were assembled, inserted and advanced along the intended course of the medial branch nerve, taking care to maintain the proper depth of insertion as the introducer was advanced under fluoroscopic guidance. The introducer needle was delivered to a location in proximity to the nerve. Multiple stimulation parameters were used to deliver stimulation to the target medial branch nerve in concert with stimulating at multiple positions around the nerve. Nerve target acquisition was confirmed noting generation of paresthesias in the paravertebral regions corresponding to the level being stimulated. Various electrical parameter combinations were tested, and the lead location was adjusted (physically relocated) until the patient indicated paresthesia/muscle tension overlapping the distribution of the patient?s typical region of pain, including neck and occipital region. The stimulating probe was removed from the introducer and a percutaneous lead was guided through the needle and delivered to a location in similar proximity to the nerve. Final location was verified with electrical stimulation and documented with fluoroscopy. The introducer needle was removed, and the exposed end of the percutaneous lead was attached to an external stimulator unit. Various electrical parameter combinations were again tested until the patient indicated paresthesia or muscle tension overlapping the distribution of the patient?s typical region of pain. Fluoroscopy was used to document the location of the percutaneous lead in the deployed position. After confirming that lead impedance was in the normal range, the external unit was detached, the needle was removed, and the lead was anchored at the skin. The lead was threaded into the connector block and electrical continuity and desired patient response was confirmed. The connector block was attached to the external stimulator unit. The site was covered with a sterile occlusive pressure dressing. The patient was observed for stability of vital signs and comfort. Patient was dischared in stable condition. Sprint PNS Device: Sprint PNS Device [id number] Percutaneous Peripheral Neuroelectrode Procedure: 75912 - Percutaneous Peripheral Neuroelectrode Procedure code (CPT) selection complete Office Meds lidocaine HCl 10 mg/mL (1 %) injection solution Performing Provider: Chelsea Reeves APRN, PRODUCE SPECIALIST Performing Location: [facility] Administered by: Peter Gutierrez MD on 05/19/25 12:15 Dose Route Admin Location Dispensed Lot Number Expiration Date [facility] Analysis Consultant 5 mL subcut 5 mL Total Dispensed Waste 5 mL 0 % Assessment & Plan Assessment & Plan (1) Cervical spondylosis: Code(s): M47.812 - Spondylosis without myelopathy or radiculopathy, cervical region Category: Medical (2) Chronic pain syndrome: Code(s): G89.4 - Chronic pain syndrome Category: Medical Plan Patient is status post temporary left C5 medial branch nerve stimulator placement. Patient tolerated procedure well and was discharged home in stable condition with discharge instructions. All questions were answered. We will follow-up via telephone or in clinic to assess response to therapy. A follow-up appointment was made during today's visit. Orders: Orders AMB Sprint PNS Today M47.812 - Spondylosis without myelopathy or radiculopathy, cervical region FL guidance in treatment room Today M47.812 - Spondylosis without myelopathy or radiculopathy, cervical region Coding Level of Care Code Procedure Only Diagnoses Cervical spondylosis M47.812 Chronic pain syndrome G89.4 CPT Codes Sprint PNS - Sprint PNS Device: Sprint PNS Device ([id number]) Sprint PNS - SPRINT: 99293 - Percutaneous Peripheral Neuroelectrode ([id number]) Implantable Device Implantable Device Implantable Devices Qty Analysis Consultant Implant Date Expiration Date Analgesic PENS system 1 [employer] 05/19/25
[2025-05-19 11:02] VITALS: BP 140/85; PULSE 115; RESP 16; O2SAT 98; BMI 21.9
[2025-05-19 12:00] VITALS: BP 111/70; PULSE 115; RESP 16; O2SAT 99
== END 2025-05-19 12:05 | disposition home or self-care (01) ==
LOC: HO.PMCPRC 10:57
PROVIDERS: PCP Internal Medicine; Visit Provider Internal Medicine
DX: M47.812 Spondylosis without myelopathy or radiculopathy, cervical region (principal); G89.4 Chronic pain syndrome
CPT/HCPCS: 64555

== ENCOUNTER 2025-05-21 08:21 | Outpatient (REF) | payer OTHER, SELFPAY ==
--- NOTE | ~2025-05-21 | CT_ITS ---
CLINICAL HISTORY: PNEUMONIA CT chest without contrast Comparison: None Findings: Normal heart size. No significant pericardial effusion. No bulky mediastinal lymphadenopathy. Suspect discoid atelectasis rather than infiltrate within the left lower lobe and right middle lobe. Lungs are otherwise clear. No pneumothorax or pleural effusions, plaques or calcifications. Central airways are patent. No bronchiectasis. No thyroid nodules. No chest wall masses. No axillary adenopathy. Limited view of the upper abdomen is normal. No acute fractures or pathologic bone lesions. Impression: 1. Suspect discoid atelectasis rather than infiltrate left lower lobe and right middle lobe follow-up until resolution. 2. No pleural effusions. No lymphadenopathy. 3. Probable calcifications near the aortic root This document has been electronically signed by: Roman Hernandez MD on 05/23/2025 11:00:40
== END 2025-05-21 08:22 | disposition home or self-care (01) ==
LOC: HO.CT 08:21
PROVIDERS: PCP Internal Medicine; Visit Provider Internal Medicine
DX: J18.9 Pneumonia, unspecified organism (principal)
CPT/HCPCS: 71250

== ENCOUNTER → 2025-05-21 08:28 | Outpatient (BNV) | payer OTHER, SELFPAY | PROVIDERS: PCP Internal Medicine; Visit Provider Radiology Diagnostic Radiology | DX: J18.9 Pneumonia, unspecified organism (principal) | CPT/HCPCS: 71250 ==

== ENCOUNTER 2025-05-25 12:48 | Outpatient (AMB) | payer OTHER, SELFPAY ==
--- OUTSIDE RECORDS SUMMARY | 2025-05-21 23:59 | XMS_ITS | Continuity of Care Document ---
Author Organization [facility] Address [address] [place] [address], [address] d Floor, [address] [place] [address]- Care Team Providers Care Demurrage Man Name Role Phone Mikayla Vázquez Primary Care Physician [place] [facility] Date(s): 04/21/25 - 05/21/25 [facility] [address] [facility] 3rd Floor, [address] [place] [id number] Encounter Type: Triage Allergies, Adverse Reactions, Alerts No Known Allergies Medications Augmentin 875 mg-125 mg oral tablet TAKE 1 TABLET BY MOUTH EVERY 12 HOURS Start Date: 05/05/25 Status: Ordered Repeat number: 1 BACLOFEN 5 MG TABLET BACLOFEN 5 MG [...] 12:26:00 PM EDT, Route to Pharmacy Electronically, [facility]/pharmacy #[id number], Partial fill upon patient request if the [...] 9:20:00 AM EDT, 03/10/25 9:20:00 AM EDT, [facility]/pharmacy #[id number], Partial fillupon patient request if the [...] 12:01:00 PM EST, Route to Pharmacy Electronically, [facility]/pharmacy #[id number], Partial fill upon patient request if [...] Refills, Maintenance, 04/11/25 3:48:00 PM EDT, Tablet, [facility]/pharmacy #[id number], Partial fill upon patientrequest if the [...] Position: Reference Physician Member Role: PCP Address: [address] [place] [address]- [place] Telecom: Care Team Related Persons Name: SONALI AGUERO Name: CARLOS HAJI Name: JUSTA HAJI Name: JUSTA HAJI Insurance Providers Guarantor name: JUSTA HAJI Health Plan Information #: 1 Payer: [employer] H[employer] Payer Identifier: NA Member Number: [id number] Group Number: [id number] Subscriber Identifier: [id number] Relationship to Subscriber: self Coverage Type: Commercial Managed Care - HMO Coverage Verification Date: NA Telecom: NA Address: NA
--- NOTE | 2025-05-25 12:50 | A.OFFVIS_ITS ---
Vital Signs 05/25/25 12:51 Height 5 ft 9 in Weight 148 lb BMI 21.9 BP 132/75 Blood Pressure Location Rt brachial Position Sitting Respiration 16 Pulse 217 H Pulse Source Pulse Oximeter Pulse Oximetry (%) 97 Oxygen Delivery Method Room Air Intake Visit Reasons: s/p Sprint Intake Note: First dressing change, Site looks clean and healed. Manufacturing Test Engineer Required: No Accompanied by: Self / Same As Patient Allergies No Known Allergies Allergy (Verified 05/25/25 12:50) HPI Comments Details: John is a very pleasant 29-year-old male who presents to the office today for follow-up, one-week status post left C5 sprint PNS placement Pain today is rated as 0/10. Patient endorses 100% pain relief with improvement in function and mobility. He has been using the device without difficulty. Denies any untoward effects of the procedure. [facility] Medical History (Updated 03/16/25 @ 09:50 by Chelsea Reeves APRN, DESIGN MAKER) Carpal tunnel syndrome on right Heart murmur Surgical History (Updated 02/17/25 @ 10:10 by Rocío Lee RN) H/O wisdom tooth extraction Family History Father No problems noted. Mother No problems noted. Social History Alcohol intake: former Substance Use Type: Marijuana Current occupational status: employed Review of Systems Const All systems reviewed & are unremarkable except as noted in HPI and below Physical Exam Vital Signs: Last Vital Signs Pulse 217 H 05/25/25 12:51 Resp 16 05/25/25 12:51 BP 132/75 05/25/25 12:51 Pulse Ox 97 05/25/25 12:51 Oxygen Delivery Method Room Air 05/25/25 12:51 BMI result Body Mass Index 21.9 General: awake, alert, oriented. Answers questions appropriately. Fully engaged in examination. Skin: warm, dry, intact HEENT: Normocephalic. Hearing intact. Cardiac: External chest normal in appearance. Respiratory: No cough, audible wheezing or stridor. Abdomen: without gross distension. MS: No obvious swelling or deformities. Neurological: Oriented to person, place, time and situation. Thought process intact. No gait abnormalities appreciated. Psychiatric: Appropriate mood and affect. Good judgment and insight. Sprint dressing change: Existing dressing removed, Area cleansed with chloraprep. Site dry, clean without redness, swelling, warmth, bruising or drain age. Lead secure device removed. Area cleansed again with chloraprep, once dry skin barrier protectant wipe applied. New lead secure device applied, tegaderm applied. Patient tolerated procedure well. Results Reviewed Results Reviewed: 10/18/24 MRI thoracic spine Impression: Small disc herniations at several levels, this is of doubtful clinical significance. No high-grade canal stenosis or neural foraminal narrowing. 09/2024 EMG IMPRESSION: 1. This is an abnormal study. 2. There is electrodiagnostic evidence for right mild median neuropathy at the wrist, consistent with carpal tunnel syndrome. 3. There is no electrodiagnostic evidence for ulnar neuropathy, brachial plexopathy, or cervical radiculopathy. 4. There is no electrodiagnostic evidence for median neuropathy on the left. 09/2024 MRI C/S. Writing visualized on patient portal via his cell phone during visit. C3-4 no significant stenosis. Mild left facet joint spurring and uncovertebral spurring resulting in mild left foraminal stenosis C6-7 mild disc bulge superimposed central and right paracentral disc extrusion. Minimal canal stenosis. [id number] bilateral foraminal stenosis. Assessment & Plan Assessment & Plan (1) Cervical spondylosis: Code(s): M47.812 - Spondylosis without myelopathy or radiculopathy, cervical region Category: Medical (2) Chronic pain syndrome: Code(s): G89.4 - Chronic pain syndrome Category: Medical Plan Patient presented to the office today for follow-up, one-week status post left C5 medial branch nerve stimulator placement. Patient tolerated procedure well and endorses 100% pain relief at this time. Denies any untoward effects of the procedure or device. Sprint dressing change as per above. Patient will change dressings at home, he has supplies and is been updated proper dressing change technique. All questions and concerns were answered, patient agrees with the plan. Follow- up as scheduled, sooner if needed Coding Level of Care Code Est Pt Level 3 (73826) Complex EM visit Add On G2211 Diagnoses Cervical spondylosis M47.812 Chronic pain syndrome G89.4
[2025-05-25 12:51] VITALS: BP 132/75; PULSE 217; RESP 16; O2SAT 97; BMI 21.9
== END 2025-05-25 13:07 | disposition home or self-care (01) ==
LOC: HO.PMC 12:49
PROVIDERS: PCP Physician Assistant; Visit Provider Registered Nurse Emergency
DX: M47.812 Spondylosis without myelopathy or radiculopathy, cervical region (principal); G89.4 Chronic pain syndrome
CPT/HCPCS: 99024

== ENCOUNTER 2025-09-30 10:45 | Outpatient (AMB) | payer OTHER, SELFPAY ==
--- OUTSIDE RECORDS SUMMARY | 2022-11-25 18:59 | XMS_ITS | Encounter Summary ---
Author Organization [facility] Address [address] [place] [address] [place] [phone] Phone Care Team Providers Care Delivery Architect Name Role Phone Enoch Fischer MD Primary Care Provider [phone] Encounter Details Date Type Department Care Team (Keshia burr Contact Info) Description 11/25/2022 6:59 PM EST Hospital Encounter [facility] [address] [place] [id number] Dori Gonzalez FNP [address] [place] [id number] [email or web address] Social History Tobacco Use Types Packs/Day Years Used Date Smoking Tobacco: Never Smokeless Tobacco: Never Alcohol Use Standard Drinks/Week Comments No 0 (1 standard drink = 0.6 oz pur e alcohol) Education Answer Date Recorded Are you interested in more education? Not on pamela e 03/07/2023 Are you concerned about learning? Not on file 03/07/2023 No 03/07/2023 No 03/07/2023 Digital Access Answer Date Recorded No 04/04/2023 No 04/04/2023 Reliable internet access at home? Not on file 04/04/2023 Device with a working camera? Not on file Sex and Gender Information Value Date Recorded Sex Assigned at Male 04/10/2018 8:16 PM EDT Legal Sex Male 8:55 PM EDT Gender Identity Male 04/10/2018 8:16 PM EDT Sexual Orientation Straight 04/10/2018 8: 16 PM EDT documented as of this encounter Plan of Treatment Upcoming Encounters Date Type Department Care Team (Keshia burr Contact Info) Description 10/28/2025 8:30 AM EST Office Visit [facility] [address] [place] [address] [place] [address] Kameron Modi MD [address] [place] [id number] documented as of this encounter Procedures Procedure Name Priority Date/Time Associated Diagnosis Comments XR KNEE 4 OR MORE VIEWS (LEFT) Urgent/patient waiting 11/25/2022 7:05 PM EST Prepatellar bursitis of left knee documented in this encounter Results * XR KNEE 4 OR MORE VIEWS (LEFT) (11/25/2022 7:05 PM EST) Anatomical Region Laterality Modality Knee Left Computed Radiogr aphy 11/25/2022 7:06 PM EST Impressions 11/25/2022 7:13 PM EST 1. No fracture or dislocation. Small effusion. 2. Prominent anterior knee soft tissue swelling with foci of gas, concerning for cellulitis/infection. Narrative 11/25/2022 7:13 PM EST XR KNEE 4 OR MORE VIEWS (LEFT) COMPARISON: None FINDINGS: Left Knee: No fracture. Normal alignment. Normal joint spaces. Small suprapatellar effusion. No bony erosion or periosteal reaction. Prominent soft tissue thickening along the anterior knee inseparable from the patellar tendon. There are subtle foci of soft tissue gas region. No radiopaque foreign body. Procedure Note Anyi Dorantes MD - 11/25/2022 XR KNEE 4 OR MORE VIEWS (LEFT) COMPARISON: None FINDINGS: Left Knee: No fracture. Normal alignment. Normal joint spaces. Smallsuprapatellar effusion. No bony erosion or periosteal reaction. Prominentsoft tissue thickening along the anterior knee inseparable from thepatellar tendon. There are subtle foci of soft tissue gas region. Noradiopaque foreign body. IMPRESSION: 1. No fracture or dislocation. Small effusion. 2. Prominent anterior knee soft tissue swelling with foci of gas,concerning for cellulitis/infection. Dori Gonzalez CLINIC PHYSICIAN DIRECTOR IMG XR LOWER EXTREMITY Ashlee l Result documented in this encounter Visit Diagnoses Not on filedocumented in this encounter Care Teams Delivery Architect Relationship Specialty Start Date End Date Enoch Fischer MD [email or web address] PCP - General Internal Medicine 11/25/22 documented as of this encounter Additional Source Comments The information contained in this document represents components of the legal health record. It is not the complete legal health record.[facility]
--- OUTSIDE RECORDS SUMMARY | 2024-11-01 09:18 | XMS_ITS | Encounter Summary ---
Author Organization [facility] Address [address] [place] [id number] Phone Care Team Providers Care Tobacco Checkout Clerk Name Role Phone Enoch Fischer MD Primary Care Provider [phone] Encounter Details Date Type Department Care Team (Late st Contact Info) Description 11/01/2024 9:18 AM EST Hospital Encounter [facility] [address] [place] [id number] Jacob Galvan, SIZE MAKER [address] [place] [address] [email or web address] Social History Tobacco Use Types Packs/Day Years [...] Upcoming Encounters Date Type Department Care Team (Late st Contact Info) Description 10/28/2025 8:30 AM EST Office Visit [facility] Pulmonary, Allergy and Critical Care Medicine [address] [place] [address] [place] [address] Kameron Modi MD [address] [place] [phone] documented as of this encounter Procedures Procedure Name Priority Date/Time Associated Diagnosis Comments XR RIBS 3 OR MORE VIEWS WITH PA CHEST (LEFT) Urgent/patient waiting 11/01/2024 9:23 AM EST Rib pain documented in this encounter Results * XR RIBS 3 OR MORE VIEWS WITH PA CHEST (LEFT) (11/01/2024 9:23 AM EST) Anatomical Region Laterality Modality Chest Computed Radiogr aphy 11/01/2024 9:40 AM EST Impressions 11/01/2024 9:43 AM EST No visualized left rib fracture. Narrative 11/01/2024 9:43 AM EST XR RIBS 3 OR MORE VIEWS WITH PA CHEST (LEFT) Referring clinician's provided indication for this examination in Epic: Pain; Patient coughed this morning and felt a crack and a pop and pain in his left ribs. COMPARISON: None FINDINGS: No visualized left rib fracture. PA evaluation of the chest demonstrates no focal consolidation, pleural effusion, pulmonary edema, or pneumothorax. Cardiomediastinal silhouette is nonenlarged. Procedure Note Severo Marinelli MD - 11/01/2024 XR RIBS 3 OR MORE VIEWS WITH PA CHEST (LEFT) Referring clinician's provided indication for this examination in Epic:Pain; Patient coughed this morning and felt a crack and a pop and pain inhis left ribs. COMPARISON: None FINDINGS: No visualized left rib fracture. PA evaluation of the chest demonstrates no focal consolidation, pleuraleffusion, pulmonary edema, or pneumothorax. Cardiomediastinal silhouetteis nonenlarged. IMPRESSION: No visualized left rib fracture. Jacob Galvan SIZE MAKER IMG XR CHEST Final Result documented in this encounter Visit Diagnoses Not on filedocumented in this encounter Care Teams Tobacco Checkout Clerk Relationship Specialty Start Date End Date Enoch Fischer MD [email or web address] PCP - General Internal Medicine 11/25/22 documented as of this encounter Additional Source Comments The information contained in this document represents components of the legal health record. It is not the complete legal health record.[facility]
--- NOTE | 2025-09-30 10:59 | MHC.OFFVIS ---
Vital Signs 09/30/25 11:00 Height 5 ft 9 in Weight 138 lb BMI 20.4 BP 104/64 Blood Pressure Location Lt brachial Position Sitting Respiration 16 Pulse 95 Pulse Source Pulse Oximeter Pulse Oximetry (%) 94 Oxygen Delivery Method Room Air Intake Visit Reasons: PAIN AFTER SPRINT REMOVAL Car Shagger Required: No Allergies No Known Allergies Allergy (Verified 09/30/25 11:01) Medication List - Last Reconciled 09/30/25 by Polina Clement LPN baclofen 10 mg PO BID bupropion HCl XL 300 mg PO QAM escitalopram oxalate 20 mg PO DAILY gabapentin 600 mg PO TID hydroxyzine HCl 25 mg PO BID PRN montelukast 10 mg PO BEDTIME quetiapine 100 mg PO BEDTIME sildenafil 50 mg PO DAILY PRN triamcinolone acetonide 0.1% 1 appl topical BID HPI Comments Details: The patient is a 30-year-old individual presenting with neck pain. 2 months s/p cervical sprint pns removal. initially reported nearly 100% pain relief until 2 weeks ago. The neck pain began approximately two and a half weeks ago, initially perceived as a stiff neck upon waking. The pain has progressively worsened, becoming excruciating and limiting daily activities. The patient reports a sharp pain in the back of the neck when bending over. 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 The patient's work involves significant overhead activities, which may contribute to the neck and shoulder discomfort. The patient has been prescribed baclofen, a muscle relaxant, but reports it has not been effective in alleviating the symptoms. The patient has not been taking any anti-inflammatory medications at this time. - Onset: Approximately two and a half weeks ago, initially perceived as a stiff neck. - Quality: Sharp pain in the back of the neck - Location: Back of the neck, radiating to the head. - Exacerbating factors: Bending over, overhead work. - Relieving factors: None reported. - Interference: Limits daily activities and work. - Affect: Pain impacts daily activities and work. - Analgesia: Currently using baclofen, starting meloxicam. - Adverse Effects: Baclofen not effective. - Activities of Daily Living: Pain limits ability to perform work and daily tasks. - Aberrant Drug Related Behaviors: None reported. [facility] Medical History (Updated 03/16/25 @ 09:50 by Chelsea Reeves, SOLID WASTE DISPOSAL MANAGER, AGRONOMY RESEARCH MANAGER) Carpal tunnel syndrome on right Heart murmur Surgical History (Updated 02/17/25 @ 10:10 by Rocío Lee RN) H/O wisdom tooth extraction Family History Father No problems noted. Mother No problems noted. Social History Alcohol intake: former Substance Use Type: Marijuana Current occupational status: employed Review of Systems Narrative - Musculoskeletal: Reports neck pain and bursitis in knees. - Neurological: Reports sharp neck pain. Physical Exam Exam Exam: General: awake, alert, oriented. Answers questions appropriately. Fully engaged in examination. Skin: warm, dry, intact HEENT: Normocephalic. Hearing intact. Cardiac: External chest normal in appearance. Respiratory: No cough, audible wheezing or stridor. Abdomen: without gross distension. MS: No obvious swelling or deformities. Neurological: Oriented to person, place, time and situation. Thought process intact. No gait abnormalities appreciated. Psychiatric: Appropriate mood and affect. Good judgment and insight. Vital Signs: Last Vital Signs Pulse 95 09/30/25 11:00 Resp 16 09/30/25 11:00 BP 104/64 09/30/25 11:00 Pulse Ox 94 09/30/25 11:00 Oxygen Delivery Method Room Air 09/30/25 11:00 BMI result Body Mass Index 20.4 Results Reviewed Results Reviewed: 10/18/24 MRI thoracic spine Impression: Small disc herniations at several levels, this is of doubtful clinical significance. No high-grade canal stenosis or neural foraminal narrowing. 09/2024 EMG IMPRESSION: 1. This is an abnormal study. 2. There is electrodiagnostic evidence for right mild median neuropathy at the wrist, consistent with carpal tunnel syndrome. 3. There is no electrodiagnostic evidence for ulnar neuropathy, brachial plexopathy, or cervical radiculopathy. 4. There is no electrodiagnostic evidence for median neuropathy on the left. 09/2024 MRI C/S. Writing visualized on patient portal via his cell phone during visit. C3-4 no significant stenosis. Mild left facet joint spurring and uncovertebral spurring resulting in mild left foraminal stenosis C6-7 mild disc bulge superimposed central and right paracentral disc extrusion. Minimal canal stenosis. [id number]-mryopikl bilateral foraminal stenosis. Assessment & Plan Assessment & Plan (1) Cervicalgia: Code(s): M54.2 - Cervicalgia Category: Medical (2) Cervical spondylosis: Code(s): M47.812 - Spondylosis without myelopathy or radiculopathy, cervical region Category: Medical Plan The patient will begin a course of physical therapy to strengthen neck and shoulder muscles and improve overall function. Diclofenac will be prescribed to manage inflammation and pain, with instructions to avoid other anti-inflammatory medications to prevent adverse effects on the kidneys and stomach. The patient is advised to modify work activities to reduce overhead strain and consider ergonomic adjustments to prevent further musculoskeletal strain. The patient is encouraged to perform home exercises as instructed by the physical therapist and to use topical analgesics like Icy Hot for symptomatic relief. Follow-up will be scheduled after the physical therapy course to assess progress and adjust the treatment plan as necessary. Patient was informed and verbally consented to the use of an ambient scribe for clinic note documentation during this visit. Orders: Orders PT Evaluation and Treatment Today M47.812 - Spondylosis without myelopathy or radiculopathy, cervical region, M54.2 - Cervicalgia Medications: New diclofenac potassium take with food. do not take with any other NSAIDs 50 mg PO BID 60 tabs 2RF Patient Instructions: - Start physical therapy as soon as possible and follow the therapist's instructions for home exercises. - Take Diclofenac once daily with food and avoid other NSAIDs. - Modify work activities to reduce overhead strain and consider ergonomic adjustments. - Use topical analgesics like Icy Hot for pain relief. - Schedule a follow-up appointment after completing physical therapy. Coding Level of Care Code Est Pt Level 3 (88833) Complex visit Add On G2211 Diagnoses Cervicalgia M54.2 Cervical spondylosis M47.812
[2025-09-30 11:00] VITALS: BP 104/64; PULSE 95; RESP 16; O2SAT 94; BMI 20.4
--- OUTSIDE RECORDS SUMMARY | 2025-09-30 11:29 | XMS_ITS | Clinical Summary ---
Author Organization [facility] Address [address] [place] [address] Phone Care Team Providers Care Otolaryngology Rep Name Role Phone Enoch Fischer MD Primary Care Provider [phone] Allergies No known active allergies Medications ibuprofen (ADVIL,MOTRIN) 800 MG tablet Take 1 tablet (800 mg total) by mouth 3 (three) times a day for 3 days. then tid prn. 30 tablet 11/25/19 Active Additional Information Patient not taking.Reported on 07/22/2025 baclofen (LIORESAL) 5 mg tablet PLEASE SEE ATTACHED FOR DETAILED DIRECTIONS 10/05/20 24 Active buPROPion (WELLBUTRIN XL) 300 MG ER 24 hr tablet Take 1 tablet by mouth every morning. 10/23/20 24 Active celecoxib (CELEBREX) 50 MG capsule PLEASE SEE ATTACHED FOR DETAILED DIRECTIONS 10/28/20 24 Active cetirizine (ZYRTEC) 10 MG tablet Take 1 tablet by mouth every morning. 09/11/20 24 Active escitalopram oxalate (LEXAPRO) 20 MG tablet 0 Refills, Maintenance, 09/02/24 7:05:00 AM EDT, Partial fill upon patient request if the prescription is for a schedule II opioid drug. 09/02/20 24 Active famotidine (PEPCID) 20 MG tablet Take 20 mg by mouth 2 (two) times a day as needed. Active gabapentin (NEURONTIN) 600 MG tablet Take 600 mg by mouth 3 (three) times a day. 10/21/20 24 Active hydrOXYzine (ATARAX) 25 MG tablet TAKE 1/2 TO 1 TABLET BY MOUTH UP TO 3 TIMES DAILY NEEDED FOR ITCHING Active LORazepam (ATIVAN) 0.5 MG tablet TAKE 1 TABLET 15-30 MINUTES PRIOR TO MRI, REPEAT THE DOSE IN 30 MINUTES FROM FIRST DOSE IF NEEDED 09/28/20 24 Active sildenafiL (VIAGRA) 50 mg tablet TAKE 1 TABLET BY MOUTH EVERY DAY NEEDED FOR INTERCOURSE Active traZODone (DESYREL) 50 MG tablet Take 50 mg by mouth nightly at bedtime as needed. Active triamcinolone acetonide 0.1 % cream APPLY THIN COAT TO AFFECTED AREA TWICE A DAY Active QUEtiapine (SEROQUEL) 100 MG tablet Take 100 mg by mouth nightly at bedtime. 07/12/20 25 Active omeprazole (PRILOSEC) 20 MG capsule Take 1 capsule by mouth every morning. 07/16/20 25 Active divalproex (DEPAKOTE) [address] tablet Take 1 tablet by mouth 2 (two) times a day. 07/12/20 25 Active PULMICORT FLEXHALER 90 mcg/actuation inhaler Inhale 1 puff into the lungs 2 (two) times a day. Active montelukast (SINGULAIR) 10 mg tablet Take 1 tablet (10 mg total) by mouth nightly at bedtime. 30 tablet 11 07/22/20 25 026 Active budesonide-for moterol 160-4.5 mcg/actuation inhaler TAKE 2 PUFFS BY MOUTH TWICE A DAY 10.2 g 5 09/12/20 25 Active budesonide-for moterol 160-4.5 mcg/actuation inhaler Inhale 2 puffs into the lungs 2 (two) times a day. 10.2 g 11 07/22/20 25 025 Discontinued Active Problems No known active problems Encounters Date Type Department Care Team Description 09/09/2025 Refill [facility] [address] [place] [address] Kameron Modi MD Med Change Request 09/01/2025 9:24 AM EDT - 09/01/2025 11:59 PM EDT Hospital Encounter [facility] [address] [place] [address] Kameron Modi MD Discharge Disposition: Home or Self Care 07/22/2025 11:04 AM EDT - 07/22/2025 11:59 PM EDT Hospital Encounter [facility] [address] [place] [address] Kameron Modi MD Discharge Disposition: Home or Self Care 07/22/2025 10:00 AM EDT Office Visit [facility] [address] [place] [address] Kameron Modi MD Moderate persistent asthma, unspecified whether complicated (Primary Dx) 07/22/2025 Telephone [facility] [address] [facility] [place] [address] Tameka Schmitt STAT PFT [facility] from Last 3 Months Social History Tobacco Use Types Packs/Day Years Used Date Smoking Tobacco: Never Smokeless Tobacco: Never Tobacco Cessation:Counseling Given: Not Answered Alcohol Use Standard Drinks/Week Comments No 0 [...] Orientation Straight 04/10/2018 8: 16 PM EDT Last Filed Vital Signs Vital Sign Reading Time Taken Comments Blood Pressure 110/66 07/22/2025 10:00 AM EDT Pulse 98 07/22/2025 10:00 AM EDT Temperature 36.7 C (98.1 F) 07/22/2025 10:00 AM EDT Respiratory Rate 17 11/01/2024 9:13 AM EST Oxygen Saturation 95% 07/22/2025 10:00 AM EDT Inhaled Oxygen Concentration - - Weight 65.6 kg (144 lb 9.6 oz) 07/22/2025 10:00 AM EDT Height 175.3 cm (5' 9.02 ) 07/22/2025 10:00 AM E DT Body Mass Index 21.34 07/22/2025 10:00 AM EDT Plan of Treatment Upcoming Encounters Date Type Department Care Team ([facility] st Contact Info) Description 10/28/2025 8:30 AM EST Office Visit [facility] [address] [place] [address] Kameron Modi MD [address] [place] [address] [phone] [email or web address] Health Maintenance Due Date Last Done Comments VALPROIC ACID (DEPAKENE) LEVEL 1994 DEPRESSION SCREENING 2006 HEPATITIS C SCREENING 2012 HIV ONE-TIME SCREENING (18-65 YEARS) 2012 PNEUMOCOCCAL VACCINES (0-49 years) (1 of 2 - PCV) 2013 Adult Td,Tdap Booster 09/21/2017 09/21/2007 INFLUENZA VACCINE (#1) 2025 , 12/14/2021, 09/19/2014 COVID-19 VACCINE ( season) 2025 12/14/2021, 01/11/2021, 12/21/2020 HIB VACCINES Completed 12/10/1995, 01/10, 1994, Additional history exists MENINGOCOCCAL VACCINES (ACWY) Aged Out 09/21/2007 No longer eligible based on patient's age to complete this topic HEPATITIS A VACCINES Aged Out 09/19/2014 No long er eligible based on patient's age to complete this topic SMOKING STATUS SCREENING (Once After 26 Yrs) Completed 07/22/2025 MENINGOCOCCAL VACCINES (B) Aged Out N o longer eligible based on patient's age to complete this topic Medical Devices Not on file Procedures Procedure Name Priority Date/Time Associated Diagnosis Comments PULMONARY FUNCTION TEST Routine 09/01/2025 10:56 AM EDT Moderate persistent asthma, unspecified whether complicated CBC AND DIFFERENTIAL Routine 07/22/2025 11:05 AM EDT Moderate persistent asthma, unspecified whether complicated NEW MARY ALLERGEN PANEL Routine 07/22/2025 11:05 AM EDT Moderate persistent asthma, unspecified whether complicated IMMUNOGLOBULIN E, TOTAL Routine 07/22/2025 11:05 AM EDT Moderate persistent asthma, unspecified whether complicated ANCA VASCULITIS PANEL (MRO AND PR3) Routine 07/22/2025 11:05 AM EDT Moderate persistent asthma, unspecified whether complicated ANTI-NEUTROPHIL CYTOPLASMIC ANTIBODY (ANCA) Routine 07/22/2025 11:05 AM EDT Moderate persistent asthma, unspecified whether complicated SEDIMENTATION RATE (ESR) Routine 07/22/2025 11:05 AM EDT Moderate persistent asthma, unspecified whether complicated C-REACTIVE PROTEIN (CRP) Routine 07/22/2025 11:05 AM EDT Moderate persistent asthma, unspecified whether complicated [id number] Routine 07/22/2025 1 1:05 AM EDT Moderate persistent asthma, unspecified whether complicated A. FUMIGATUS, IGE Routine 07/22/2025 11: 05 AM EDT Moderate persistent asthma, unspecified whether complicated RHEUMATOID FACTOR Routine 07/22/2025 11: 05 AM EDT Moderate persistent asthma, unspecified whether complicated CCP IGG ANTIBODIES Routine 07/22/2025 11 :05 AM EDT Moderate persistent asthma, unspecified whether complicated SS-A/SS-B ANTIBODIES Routine 07/22/2025 11:05 AM EDT Moderate persistent asthma, unspecified whether complicated ASPERGILLUS ANTIBODY, BLOOD Routine 07/22/2025 11:05 AM EDT Moderate persistent asthma, unspecified whether complicated ASPERGILLUS FUMIGATUS, IGG Routine 07/22/2025 11:05 AM EDT Moderate persistent asthma, unspecified whether complicated from Last 3 Months Results * Pulmonary Function Test Reason for Exam: Asthma; Type of PFT Test: Spirometry with bronchodilator, DLCO, Lung Volumes, Muscle Forces; Additional Testing: Exhaled Nitric Oxide Test ([facility], [facility], [facility], [facility] only); Performing Location: [facility] (09/01/2025 10:56 AM EDT) FEV1 3.23 liters FVC 4.23 liters FEV1/FVC 76 % TLC 5.67 liters DLCO 25.64 ml/mmHg sec Anatomical Region Laterality Modality Other Impressions 09/01/2025 10:56 AM EDT PULMONARY FUNCTION STUDIES Full pulmonary function studies were performed on this 30 y.o. year-old male for evaluation of asthma. Review of the medical record reveals that the patient is a marijuana smoker. Prior pulmonary function studies are not available for comparison. SPIROMETRY: The FEV1 is normal at 3.23 L or 80% predicted. The FVC is normal at 4.23 L or 87% predicted. The FEV1/FVC ratio is normal at 76%. After the administration of a bronchodilator agent, there is no technically significant change. FLOW-VOLUME LOOPS: Evaluation of the flow-volume loops reveals normal morphology of both the inspiratory and expiratory limbs with no significant difference when comparing the tracings performed pre- and post-bronchodilator. LUNG VOLUME MEASUREMENTS BY PLETHYSMOGRAPHY: The total lung capacity is normal at 5.67 L or 82% predicted. The RV/TLC ratio is normal at 25%. DIFFUSION CAPACITY: The diffusion capacity is normal at 25.6 mL/mmHg sec or 80% predicted. EXHALED NITRIC OXIDE MEASUREMENT: FeNO is 53 ppb. Resting oxygen saturation is 96% on room air. IMPRESSION: This represents essentially normal pulmonary function studies. The exhaled nitric oxide measurement is elevated. 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 year-old male for evaluation of asthma. MAXIMUM VOLUNTARY VENTILATION: The MVV is 105 L/min or 72% predicted. MAXIMUM PRESSURES: The Maximum inspiratory pressure (MIP) is -61 cm H2O or $55% predicted. The Maximum expiratory pressure (MEP) is +112 cm H2O or 77% predicted. IMPRESSION: Moderate impairments in respiratory muscle farm tractor mechanic testing. 6-MINUTE DISTANCE WALK A standard 6-minute distance walk was performed according to ATS criteria with the patient breathing room air. At rest, the oxygen saturation was 98% with a heart rate of 95 bpm and a respiratory dyspnea index of 0 on a scale from 0 to 10. During ambulation, the oxygen saturation reached a iman of 98%, the heart rate increased physiologically to a maximum of 118 bpm and the respiratory dyspnea index reached a maximum of 2. After one minute of recovery, the oxygen saturation was 98%, the hear rate was 97 bpm and the respiratory dyspnea index was 1. The patient ambulated 1520 feet or 463 meters, which is normal. There was no report chest pain, light-headedness or leg pain during the study. IMPRESSION: Essentially normal 6-minute distance walk study except for a minimal increase in the respiratory dyspnea index with ambulation. Technical Note: As of 09/21/2024, the [facility] Pulmonary Function Testing (PFT) Laboratory transitioned from using race-specific to using race-neutral equations for determining lung function predicted values for all persons. Due to this change some individuals previously classified as either normal or abnormal may now change from one to the other category without a true change in lung function. Such changes, as well as changes in severity classification, should be considered broadly and in their clinical context. Absolute values of lung function are unaffected. For further questions please contact the interpreting physician or PFT medical laboratory manager. For further discussion of this issue please see Edmundo et al [facility] 2022;[phone]. Please Note: Not all PFT labs within, or outside of, our system will be transitioning to new reference equations at the same time. For this reason, please pay close attention to absolute values when comparing results done at different testing locations within or outside of our system. Kameron Modi MD PFT ORDERABLES Final Result * ANCA Vasculitis Panel (MPO and PR3) (07/22/2025 11:05 AM EDT) MYELOPEROXIDASE AB <0.2 <0.4 (Negative) U [facility] MED/PATH [place] PROTEINASE 3 AB <0.2 <0.4 (Negative) U [facility] MED/PATH [place] Blood 07/22/2025 11:0 5 AM EDT 07/22/2025 11:07 AM EDT us Kameron Modi MD LAB BLOOD BKR ORDERABLES Fin al Result Performing Organization Address [facility] Co de Phone Number [facility] MED/PATH [facility] [address] [place] [address] * Aspergillus fumigatus, IgG (07/22/2025 11:05 AM EDT) Aspergillus Ab, IgG 24.8 <=102 mg/L [facility] Comment: (NOTE) ADDITIONAL INFORMATION This test was developed and its performance characteristics determined by [facility] in a manner consistent with CLIA requirements. This test has not been cleared or approved by the U.S. Food and Drug Administration. Blood 07/22/2025 11:0 5 AM EDT 07/22/2025 11:07 AM EDT us Kameron Modi MD LAB BLOOD ORDERABLES Final R esult Performing Organization Address [facility] de Phone Number [facility] MED/PATH [facility] [address] [place] [address] * ASPERGILLUS ANTIBODY, BLOOD (07/22/2025 11:05 AM EDT) Aspergillus fumigatus Negative Neg:<1:1 [facility] Aspergillus flavus Negative Neg:<1:1 [facility] Aspergillus niger Negative Neg:<1:1 [facility] Comment: (NOTE) Test Performed by: [address] [id number] Blood 07/22/2025 11:0 5 AM EDT 07/22/2025 11:07 AM EDT us Kameron Modi MD LAB BLOOD BKR ORDERABLES Fin al Result Performing Organization Address City/[facility] Co de Phone Number [facility] * A. fumigatus, IgE (07/22/2025 11:05 AM EDT) A.FUMIGATUS, IGE 0.21 <0.70 kU/L [facility] Comment: (NOTE) Class 0/1 (Borderline/Equivocal 0.10-0.34) Blood 07/22/2025 11:0 5 AM EDT 07/22/2025 11:07 AM EDT Kameron Modi MD LAB BLOOD ORDERABLES Final R esult [facility]PATH [address] [place] [address] * SS-A/SS-B antibodies (07/22/2025 11:05 AM EDT) ANTI-RO ANTIBODY 2.61 0.00 - 19.99 OD UNIT [facility] RO INTERPRETATION Negative Negative [facility] ANTI-LA ANTIBODY 2.22 0.00 - 19.99 OD [facility]IT [facility] LA INTERPRETATION Negative Negative [facility] Blood 07/22/2025 11:0 5 AM EDT 07/22/2025 11:07 AM EDT us Kameron Modi MD LAB BLOOD ORDERABLES Final R esult [address] [address] * Immunoglobulin E, total (07/22/2025 11:05 AM EDT) IGE 131 <=214 kU/L [facility] Blood 07/22/2025 11:0 5 AM EDT 07/22/2025 11:07 AM EDT us Kameron Modi MD LAB BLOOD BKR ORDERABLES Fin al Result [facility]PATH [address] [place] [address] * (ABNORMAL) [place] allergen panel (07/22/2025 11:05 AM EDT) OAK, IGE 0.12 <0.70 kU/L [facility]PATH [address] Comment: (NOTE) Class 0/1 (Borderline/Equivocal 0.10-0.34) TORIBIO GRASS, IGE <0.10 <0.70 kU/L [facility]PATH [address] Comment: (NOTE) Class 0 (Negative <0.10) [place] Ab, IgE <0.10 <0.70 kU/L [facility]PATH [address] Comment: (NOTE) Class 0 (Negative <0.10) SHORT RAGWEED, IGE <0.10 <0.70 kU/L [facility]PATH [address] Comment: (NOTE) Class 0 (Negative <0.10) DE LEON'S QUARTER, IGE <0.10 <0.70 kU/L [facility] MED[facility]PATH [place] [address] Comment: (NOTE) Class 0 (Negative <0.10) CAT EPITHELIUM, IGE <0.10 <0.70 kU/L [facility]PATH [address] Comment: (NOTE) Class 0 (Negative <0.10) DOG DANDER, IGE 0.20 <0.70 kU/L [facility]PATH [address] Comment: (NOTE) Class 0/1 (Borderline/Equivocal 0.10-0.34) C.HERBARUM, IGE <0.10 <0.70 kU/L [facility]PATH [place] [address] Comment: (NOTE) Class 0 (Negative <0.10) A.TENUIS,IGE <0.10 <0.70 kU/L [facility] MED/PATH [address] Comment: (NOTE) Class 0 (Negative <0.10) D.FARINAE, IGE 27.4(H) <0.70 kU/L [facility]PATH [address] Comment: (NOTE) Class 4 (Strongly Positive 17.5-49.9) Blood 07/22/2025 11:0 5 AM EDT 07/22/2025 11:07 AM EDT us Kameron Modi MD LAB BLOOD BKR ORDERABLES Fin al Result Performing Organization Address City/[facility]/ZIP Co de Phone Number [facility] MED/PATH [address] [place] [address] * CCP IgG antibodies (07/22/2025 11:05 AM EDT) ANTI-CCP IGG <8 0 - 16 U/mL [facility] Blood 07/22/2025 11:0 5 AM EDT 07/22/2025 11:07 AM EDT Kameron Modi MD LAB BLOOD BKR ORDERABLES Fin al Result Performing Organization Address [facility]/ZIP Co de Phone Number [address] [address] * [id number] (07/22/2025 11:05 AM EDT) [id number] PSIN 143 100 - 190 mg/dL [facility] [place] Blood 07/22/2025 11:0 5 AM EDT 07/22/2025 11:07 AM EDT Kameron Modi MD LAB BLOOD ORDERABLES Final R esult Performing Organization Address [facility] Co de Phone Number [facility] MED/PATH [facility] [address] [place] [address] * Anti-Neutrophil Cytoplasmic Antibody (ANCA) (07/22/2025 11:05 AM EDT) C-ANCA Negative Negative [facility] P-ANCA Negative Negative [facility] Comment: (NOTE) Negative for cANCA and pANCA patterns by immunofluorescence. ADDITIONAL INFORMATION This test was developed and its performance characteristics determined by [facility] in a manner consistent with CLIA requirements. This test has not been cleared or approved by the U.S. Food and Drug Administration. Blood 07/22/2025 11:0 5 AM EDT 07/22/2025 11:07 AM EDT us Kameron Modi MD LAB BLOOD BKR ORDERABLES Fin al Result [facility] [address] [place] [address] * Sedimentation rate (ESR) (07/22/2025 11:05 AM EDT) ESR <1 0 - 15 mm/h Blood 07/22/2025 11:0 5 AM EDT 07/22/2025 11:07 AM EDT us Kameron Modi MD LAB BLOOD BKR ORDERABLES Fin al Result Performing Organization Address City/[facility]/ZIP Co de Phone Number [address] [address] * (ABNORMAL) CBC and differential (07/22/2025 11:05 AM EDT) WBC 7.20 4.00 - 11.00 K/uL RBC 5.29 4.50 - 5.90 M/uL HGB 15.7 13.5 - 17.5 g/dL HCT 47.8 41.0 - 53.0 % PLT 308 150 - 450 K/uL MCV 90.4 80.0 - 100.0 fL MCH 29.7 27.0 - 31.0 pg MCHC 32.8 32.0 - 36.0 g/dL RDW 12.0 11.5 - 14.5 % MPV 11.4 8.4 - 12.0 fL NRBC 0.00 0.00 /100 WBCs ABSOLUTE NRBC 0.00 0.00 K/uL DIFF METHOD Auto NEUTS 46.9(L) 48.0 - 76.0 % LYMPHS 41.5(H) 18.0 - 41.0 % MONOS 9.3 4.0 - 11.0 % EOS 1.5 0.0 - 5.0 % BASOS 0.7 0.0 - 1.5 % Granulocytes, immature (%) 0.1 0.0 - 0.9 % ABSOLUTE NEUTS 3.37 1.92 - 7.60 K/uL ABSOLUTE LYMPHS 2.99 0.72 - 4.10 K/uL ABSOLUTE MONOS 0.67 0.16 - 1.10 K/uL ABSOLUTE EOS 0.11 0.00 - 0.50 K/uL ABSOLUTE BASOS 0.05 0.00 - 0.15 K/uL Granulocytes, immature 0.01 0.00 - 0.09 K/uL Blood 07/22/2025 11:0 5 AM EDT 07/22/2025 11:07 AM EDT us Kameron Modi MD LAB BLOOD BKR ORDERABLES Fin al Result [address] [address] * Rheumatoid factor (07/22/2025 11:05 AM EDT) RHEUMATOID FACTOR <10.0 0.0 - 14.0 IU/ml Blood 07/22/2025 11:0 5 AM EDT 07/22/2025 11:07 AM EDT us Kameron Modi MD LAB BLOOD BKR ORDERABLES Fin al Result [address] [address] * C-Reactive Protein (07/22/2025 11:05 AM EDT) C REACTIVE PROTEIN <3.0 0.0 - 4.0 mg/L Blood 07/22/2025 11:0 5 AM EDT 07/22/2025 11:07 AM EDT Kameron Modi MD LAB BLOOD BKR ORDERABLES Fin al Result [address] [place] [address] from Last 3 Months [facility] [address] [place] [address] [address] [place] [address] Care Teams Otolaryngology Rep Relationship Specialty Start Date End Date Enoch Fischer MD [email or web address] PCP - General Internal Medicine 11/25/22 Additional Source Comments The information contained in this document represents components of the legal health record. It is not the complete legal health record.[facility]
--- OUTSIDE RECORDS SUMMARY | 2025-09-30 11:29 | XMS_ITS | Data Portability ---
Author Organization [facility], [place] - Luigi PT Address [address] [place] [address] Care Team Providers Care Montessori Lead Teacher Name Role Phone JESTOÑO BOWER Primary Care Provider [phone] Assessment No assessment recorded. Plan of Treatment Reminders Order Date Submit Date Provider Last Modified By Organization Details Last Modified Time Details Appointments None recorded. Lab None recorded. Referral None recorded. Procedures None recorded. Surgeries None recorded. Imaging XR, knee, 4 or more view - new evdc right knee pain room 2 2024 025 [facility], [address] [facility], [facility] [address], [place], [address], 5 15:57:06 Medication Orders ibuprofen 800 mg tablet 2024 025 [id number], [address] [place], [address], 5 15:57:06 Voltaren Arthritis Pain 1 % topical gel 2024 025 [id number], [address] [place], [address], 5 15:57:06 Patient TargetsNo targets recorded. Patient InstructionsNo instructions recorded. Reason for Referral None Reported. Results Created Date Observation Date Name Description Value Unit Range Abnormal Flag Note LastModifiedBy Organization Detail LastModifiedTime 11/29/19 25 11/29/2024 XR, knee, 4 or more view http:/ [email or web address] ?Encry pted=s hAaTro YD8dLq bEUv6g %2BXZw aYqtaq 0bqfl% 2Fg9IQ a4ajBk vP9nXo QUaueC m3YtLR FvZlgJ JJ8mAn HZtai3 8w9624 AC0Kqb 3uCUqu nKiQtr MwF INTERFACE [facility] Office [address] [facility] [address], [place], [address], 11/29/2024 15:08:55 11/29/19 25 11/29/2024 XR, knee, 4 or more view http:/ [email or web address] ?Encry pted=s ElisaaTro YD8dLq bEUv6g %2BXZw aYqtaq 0bqfl% 2Fg9IQ a4ajBk vP9nXo QUaueC m3YtLR FvZlJ JJ8mAn HZtai3 1u1631 AC0Kqb 3uCUqu nKiQtr MwF INTERFACE [facility] [address] [facility] [address], [place], [address], 11/29/2024 15:08:57 Result Notes Documentation Provider Name and Address Organization Details Recorded Time Xr, Knee, 4 Or More View : [email or web address]? Encrypted=tcWgTdbUN6aVmfQ Uv6g%3WVOhjHsbmk0vvep%2Fg 2JMk7alZltR1wNxHCfolWc5Hz NQGgHlaTNL8mExFGfxp83h681 3NV4Pgq4mDRprbMvDaxEyW Not Available [facility] 11/29/2024 15:08: 56 Xr, Knee, 4 Or More View : [email or web address] Encrypted=wdEnWhxCM6uJmzA Uv6g%2UEYdjUeumr1cxnf%2Fg 8KKt2afBbkS9kByAUqnpRo3Rs FVUcTspXYJ3xMyMUfzh70g066 3TT1Fkq9ySCgviPwCyaIaC Not Available [facility] 11/29/2024 15:08: 58 Problems Name Problem SNOMED Code Status Onset Date Resolution Date Notes Provider Name and Address Organization Details Recorded Time Pain of right knee joint 7928314052407 00 Active 2024 KADIEGO L'HEUREUX [facility], [facility] 15:02:11 Prepatellar bursitis of right knee 2206422503390 00 Active 2024 Edvin sutton PA-C [address], [place], [address], [facility] 14:12:46 Problem Notes None recorded. Procedures Surgical History Date Name Laterality Status Provider Name and Address Organization Details Recorded Time Hand Surgery completed Malia Diaz [facility] 05/30/2025 13:52:27 Head or Neck Surgery completed Malia Diaz [facility] 05/30/2025 13:52:27 Imaging Results None recorded. Procedure Notes None recorded. Medical Equipment None Reported. Allergies No known drug allergies Medications Name Sig Start Date Stop Date Status Note LastModified by Organization Details LastModified Time cyclobenzap rine 10 mg tablet TAKE 1 TABLET BY MOUTH THREE TIMES A DAY NEEDED FOR MUSCLE SPASM active Not Available Not Available No t Available gabapentin 600 mg tablet TAKE 1 TABLET BY MOUTH THREE TIMES A DAY active Not Available Not Available No t Available doxycycline hyclate 100 mg capsule TAKE 1 CAPSULE BY MOUTH TWICE A DAY FOR 7 DAYS 05/30 completed Not Available Not Available Not Available tizanidine 2 mg tablet TAKE 1 TABLET BY MOUTH EVERY 8 HOURS NEEDED 11/29 completed Not Available Not Available Not Available divalproex 250 mg tablet,tucker yed release TAKE 1 TABLET BY MOUTH TWICE A DAY active Not Available Not Available No t Available trazodone 50 mg tablet TAKE 1/2 TABLET BY MOUTH NEEDED FOR SLEEP 05/30 completed Not Available Not Available Not Available sildenafil 50 mg tablet TAKE 1 TABLET BY MOUTH EVERY DAY NEEDED FOR INTERCOUR SE active Not Available Not Available No t Available cetirizine 10 mg tablet TAKE 1 TABLET BY MOUTH EVERY DAY active Not Available Not Available No t Available azithromyci n 250 mg tablet TAKE 2 TABLETS BY MOUTH TODAY, THEN TAKE 1 TABLET DAILY FOR 4 DAYS DIRECTED 05/30 completed Not Available Not Available Not Available ibuprofen 800 mg tablet TAKE 1 TABLET BY MOUTH THREE TIMES A DAY FOR 30 DAYS 05/30 completed Not Available Not Available Not Available prednisone 20 mg tablet TAKE 2 TABLETS BY MOUTH EVERY DAY FOR 5 DAYS 05/30 completed Not Available Not Available Not Available gabapentin 400 mg capsule TAKE 1 CAPSULE BY MOUTH 3 TIMES A DAY FOR 30 DAYS 05/30 completed Not Available Not Available Not Available triamcinolo ne acetonide 0.1 % topical cream APPLY THIN COAT TO AFFECTED AREA TWICE A DAY active Not Available Not Available No t Available oxycodone-a cetaminophe n 5 mg-325 mg tablet TAKE 1 TAB ORALLY EVERY 6 HOURS NEEDED FOR PAIN, SEVERE PARTIAL FILL UPON PATIENT REQUEST. 05/30 completed Not Available Not Available Not Available famotidine 20 mg tablet TAKE 1 TABLET BY MOUTH TWICE A DAY NEEDED active Not Available Not Available No t Available lorazepam 0.5 mg tablet TAKE ONE TABLET 30-90 MINUTES BEFORE PROCEDURE , IF NEEDED YOU CAN REPEAT THE DOSE AFTER 30 MINUTES. 05/30 completed Not Available Not Available Not Available methotrexat e sodium 2.5 mg tablet TAKE 6 TABLETS ORALLY EVERY WEEK FOR 90 DAYS 05/30 completed Not Available Not Available Not Available baclofen 10 mg tablet TAKE 1 TABLET BY MOUTH 3 TIMES A DAY NO DRIVING, DO NOT TAKE WITH ANY OTHER LEAD SECTION SUPERVISOR DEPRESSAN TS. active Not Available Not Available No t Available trazodone 150 mg tablet TAKE 1 TABLET BY MOUTH EVERYDAY AT BEDTIME active Not Available Not Available No t Available divalproex 125 mg tablet,tucker yed release TAKE 1 TABLET BY MOUTH TWICE A DAY 05/30 completed Not Available Not Available Not Available gabapentin 300 mg capsule TAKE 1 CAPSULE BY MOUTH THREE TIMES A DAY 05/30 completed Not Available Not Available Not Available omeprazole 20 mg capsule,del ayed release TAKE 1 CAPSULE BY MOUTH EVERY DAY active Not Available Not Available No t Available folic acid 1 mg tablet TAKE 1 TABLET BY MOUTH EVERY DAY 05/30 completed Not Available Not Available Not Available hydroxyzine HCl 25 mg tablet TAKE 1/2 TO 1 TABLET BY MOUTH UP TO 3 TIMES DAILY NEEDED FOR ITCHING active Not Available Not Available No t Available gabapentin 100 mg capsule TAKE 2 CAPSULES BY MOUTH 3 TIMES A DAY 05/30 completed Not Available Not Available Not Available lorazepam 1 mg tablet TAKE 1 TABLET BY MOUTH 15 MINTUES PRIOR TO LP NEEDED FOR ANXIETY 05/30 completed Not Available Not Available Not Available diazepam 10 mg tablet TAKE 1 TAB BY MOUTH 1 HR PRIOR TO PROCEDURE 05/30 completed Not Available Not Available Not Available ibuprofen 600 mg tablet TAKE 1 TABLET BY MOUTH THREE TIMES A DAY NEEDED, TAKE WITH FOOD 11/29 completed Not Available Not Available Not Available amoxicillin 875 mg-potassiu m clavulanate 125 mg tablet TAKE 1 TABLET BY MOUTH EVERY 12 HOURS 05/30 completed Not Available Not Available Not Available oxycodone 5 mg tablet TAKE 1 TABLET BY MOUTH EVERY 4 TO 6 HOURS FOR 5 DAYS 11/29 completed Not Available Not Available Not Available escitalopra m 10 mg tablet TAKE 1 TABLET BY MOUTH EVERY DAY 05/30 completed Not Available Not Available Not Available escitalopra m 20 mg tablet TAKE 1 TABLET BY MOUTH EVERY DAY active Not Available Not Available No t Available cyclobenzap rine 5 mg tablet TAKE 1 TABLET BY MOUTH IN THE AM AND 2 TABLETS AT NIGHT 05/30 completed Not Available Not Available Not Available bupropion HCl XL 300 mg 24 hr tablet, extended release TAKE 1 TABLET BY MOUTH EVERY DAY active Not Available Not Available No t Available bupropion HCl XL 150 mg 24 hr tablet, extended release TAKE 1 TABLET BY MOUTH EVERY DAY 05/30 completed Not Available Not Available Not Available escitalopra m 5 mg tablet TAKE 1 TABLET BY MOUTH EVERY DAY 05/30 completed Not Available Not Available Not Available celecoxib 50 mg capsule PLEASE SEE ATTACHED FOR DETAILED DIRECTION S 05/30 completed Not Available Not Available Not Available Pulmicort Flexhaler 90 mcg/actuati on breath activated INHALE 1 PUFF TWICE DAILY FOR CONTROL OF ASTHMATIC SYMPTOMS. active Not Available Not Available No t Available diclofenac 1 % topical gel APPLY 2 GRAMS TO THE AFFECTED AREA(S) BY TOPICAL ROUTE 4 TIMES PER DAY active Not Available Not Available No t Available doxepin 3 mg tablet TAKE 1 TABLET BY MOUTH EVERYDAY AT BEDTIME 11/29 completed Not Available Not Available Not Available baclofen 5 mg tablet PLEASE SEE ATTACHED FOR DETAILED DIRECTION S 05/30 completed Not Available Not Available Not Available Airsupra 90 mcg-80 mcg/actuati on HFA aerosol inhaler INHALE 1 PUFF EVERY 3-4 HOURS NEEDED active Not Available Not Available No t Available Vitals Date Recorded Body height Body mass index (BMI) Body weight Provider Name and Address Organization Details Last Updated DateTime 11/29/2024 175.26 cm 19.9 kg/m2 78629.97 g SAHARAYANNCHIO L'HEUREUX [facility] 11/29/2024 15:00:27 Date Recorded Body height Body mass index (BMI) Body weight Provider Name and Address Organization Details Last Updated DateTime 05/30/2025 175.26 cm 20.7 kg/m2 81272.93 g Malia Emily [facility] 05/30/2025 13:56:27 Social History Question Answer Notes LastModified by Organizat ion Details LastModified Time Tobacco Smoking Status Never Smoker KAYLIA L'HEUREUX [facility] 11/29/2024 15:01:38 What Is Your Relationship Status? Information not available 11/29/2024 Sex: Unknown Functional Status Question Answer Note LastModified by Organizat ion Details LastModified Time Do you use any illicit or recreational drugs? No Information not available 11/29/2024 Do you or have you ever used any other forms of tobacco or nicotine? No Information not available 11/29/2024 What is your level of alcohol consumption? None Information not available 11/29/2024 Mental Status None recorded. Family History Nothing Reported. Medical History Condition Response Allergies/Hayfever N Coronary Artery Disease N Anxiety/Depression Y Breathing or lung disorders N Emphysema N Nerve Disorders N Thyroid Problems N COPD N Pacemaker N Anemia N Kidney/Bladder Problems N Vascular Disease N Heart Trouble Y Heart Attack (SD) N Gastrointestinal Disease N Cholesterol N Diabetes N Autoimmune disease N Bleeding Disorder N Inflammatory Joint disease N Orthotics N Arthritis Y Seizures/Epilepsy N Blood Clot N AIDS/HIV N Congestive Heart Failure (CHF) N Acid Reflux (GERD) Y Cancer N Stroke N Asthma N Circulation Problems N Peripheral Vascular Disease N Sleep Apnea N Hepatitis N Heart Disease N Rheumatoid Arthritis N Arrhythmia N Pulmonary Embolism N Headaches N Fibromyalgia N Hypertension N Osteoporosis N Past Encounters Encounter ID Performer Location Encounter Start Date Encounter Closed Date Diagnosis/Indication Diagnosis SNOMED-CT Code Diagnosis ICD10 Code Diagnosis IMO Codes Diagnosis Note [id number] [facility] [place] [id number] 11/29/2024 14:48:27 12/08/2024 12:55:20 Pain of right knee joint 5688822069 63854 M25.561 [id number] Prepatella r bursitis of right knee 2537378508 86873 M70.41 [id number] Reviewed patient's imaging and exam findings in detail with him. Discussed that he has prepatella r bursitis. The discomfort he is feeling to the anterior jean is consistent with his pitting edema as a result of the inflammati on to the anterior knee. The swelling does extend all the way to the tibial tubercle for can radiate and referred down the anterior jean. Recommende d purchasing over-the-c ounter compressio n stockings to minimize edema throughout the lower extremity. Will also initiate him on high-dose anti-infla mmatories with ibuprofen 800 mg p.o. 3 times daily. Recommend discontinu ation of his Celebrex while he is taking the oral ibuprofen. May also apply topical diclofenac cream to the affected area up to 4 times as needed. Encouraged frequent icing and elevation above heart level to reduce inflammati on. If he develops any infectious changes he should contact our office immediatel y or present to the emergency department . Follow-up otherwise as needed. All questions and concerns were addressed and answered. Encouraged use of gel pad or knee pads while he is working as he works in [employer] and is frequently kneeling and at high risk for recurrence . Discussed risks and benefits associated with anti-infla mmatory use. Patient should not take any other NSAID's while taking this medication . Drink plenty of water. Stop if you develop any GI upset, or signs/symp toms of GI bleed including black/bloo dy stools. Take with food. Prescribed ibuprofen 800mg PO TID. [id number] DAVID Randall [address] [place] [address] 05/30/2025 13:44:40 06/08/2025 08:36:21 Pain of right knee joint 4869912118 95595 M25.561 [id number] Prepatella r bursitis of right knee 6379989759 34117 M70.41 [id number] Health Concerns Section Related Observation LastModified by Organization Detai ls LastModified Time None Recorded Concern Status LastModified by Organization Details LastModified Time None Recorded Advance Directives Directive None Recorded Payers Insurance Date Sequence Insurance Name Policy Number Policy Huynh Covered Member ID Huynh Member ID Guarantor Name 06/08/[address] [place] [address] [id number] John Morales Wali [id number] John Wali Notes Date Note Type Note Provider Name and Address Organization Details Recorded Time 11/29/2024 text/html ROS as noted in the HPI I am seeing the patient under the general supervision of Dr. Tillman who was available but who did not see the patient. Patient is a 29 year old male who presents today with chief complaint of right knee pain and swelling. He reports right knee pain starting approximately 2 weeks ago. He states he was having pain prior to going to sleep and when he woke up he had swelling to the knee. He has had bursitis in the past to both the left and right knee. This was treated with heat, ice, and elevation. Reports that his pain and swelling is localized to the anterior knee but is radiating into the anterior jean which has not happened before. Denies any fevers or chills. He does take Celebrex 50 mg daily. DIAGNOSTIC IMAGIN view right knee radiographs were ordered, obtained and independently reviewed by myself during today's visit at [facility] and demonstrate well-preserved tricompartmental joint spaces throughout. No fracture or dislocation. Patella tracking centrally in the groove on merchant view. Bijal Guzman PA-C [address] [facility] [address], [place], [address], [facility] 11/29/2024 15:39:28 05/30/2025 text/html I am seeing the patient today under the supervision of Dr. Art who was available but who did not see the patient. John presents examination of his right knee. 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 Denies any erythema or warmth or evidence of infection. He did have some swelling in times past which resolved on its own. He was seen by our office in November 2024 and diagnosed with prepatellar bursitis and treated conservatively. Currently, he has had diminished swelling. Past medical, social, surgical history reviewed the patient and updated on the intake form that is scanned into the medical record Physical exam: Today on presentation awake, alert, oriented, X 3. Non-anatalgic gait to the Right knee. - assistive devices. Left knee: Full range of motion, no effusion, no meniscal tenderness, negative provocative ligamentous testing, calf was supple. Hypertrophic changes to the prepatellar bursa with callus. Right knee: Full range of motion, no effusion, no meniscal tenderness, negative provocative ligamentous testing, calf was supple. Hypertrophic changes to the prepatellar bursa with callus. X-rays were obtained today at [facility] and independently reviewed with the patient 3 weightbearing views: No bony abnormalities, to pathology, fracture or arthritis identified Impression: Currently asymptomatic prepatellar bursitis with underlying chronically callused bursa Plan lengthy discussion regarding: Etiology and pathophysiology behind the symptoms as well as conservative treatment options. At this time the prepatellar bursa is benign and encouraged to monitor to rule out any evidence of infection going forward however only real treatment option is surgical with excision of bursa. He will follow-up with us as needed. Edvin Ward PA-C [address] [facility] [address], [place], [address], [facility] 05/30/2025 14:19:35
== END 2025-09-30 11:23 | disposition home or self-care (01) ==
PROVIDERS: PCP Physician Assistant; Visit Provider Registered Nurse Emergency
DX: M54.2 Cervicalgia (principal); M47.812 Spondylosis without myelopathy or radiculopathy, cervical region
CPT/HCPCS: 99213; G2211